=== PATIENT | male | born 1935 | race Caucasian/White ===

== ENCOUNTER 2019-08-06 16:17 | Emergency (ER) | payer MEDICARE, OTHER ==
--- NOTE | 2019-08-06 16:31 | EDM.PDOC ---
ED HPI GENERAL MEDICAL PROBLEM - General Stated Complaint: HORSE BITE TO R ARM Time Seen by Provider: 08/06/19 16:22 Source of Information: Reports: Patient - History of Present Illness INITIAL COMMENTS - FREE TEXT/NARRATIVE: Roddy is an 83 y/o male who comes to the ER after being bitten by one of his horses today in the right upper arm. He cleaned the wound with perioxide. No other injuries. - Related Data Allergies Allergy/AdvReac Type Severity Reaction Status Date / Time bupropion HCl [From Zyban] Allergy Cannot Verified 02/01/18 12:33 Remember ciprofloxacin [From Cipro] Allergy Itching Verified 02/01/18 12:33 ciprofloxacin HCl Allergy Itching Verified 02/01/18 12:33 [From Cipro] morphine Allergy Itching Verified 02/01/18 12:33 Hair Dye Allergy Blisters Uncoded 01/02/16 06:58 Home Meds: Home Meds Cholecalciferol (Vitamin D3) [Vitamin D3] 5,000 units PO DAILY 03/24/13 [History ] Sennosides/Docusate Sodium [Sennosides-Docusate Sodium] 1 tab PO DAILY 03/24/13 [History] Tiotropium [Spiriva Handihaler] 2 puff PO DAILY 03/24/13 [History] Albuterol Sulfate [Proair Hfa] 2 puff PO Q4H PRN 02/01/18 [History] Calcium Citrate/Vitamin D3 [Calcitrate + Vit D Cap (315 MG/250 UNITS)] 1 tab PO BIDMEALS 02/01/18 [History] Zoledronic Acid in Water [Reclast] 5 mg IV Q365D 02/01/18 [History] Acetaminophen [Tylenol] 650 mg PO Q4H PRN tablet 02/05/18 [Rx] Albuterol [Proventil Neb Soln] 2.5 mg NEB Q4H PRN neb 02/05/18 [Rx] Cefdinir [Omnicef] 300 mg PO BID 7 Days #14 cap 02/05/18 [Rx] Citalopram [Citalopram HBr] 20 mg PO DAILY tablet 02/05/18 [Rx] ClonazePAM [KlonoPIN] 1 mg PO BID tablet 02/05/18 [Rx] Latanoprost [Xalatan 0.005% Ophth Soln] 0 ml EYEBOTH BEDTIME bottle 02/05/18 [ Rx] Mirtazapine [Remeron] 7.5 mg PO BEDTIME tablet 02/05/18 [Rx] Nitroglycerin [Nitrostat] 0.4 mg SL ASDIRECTED PRN tab.sl 02/05/18 [Rx] Omeprazole 40 mg PO BIDAC cap.cr 02/05/18 [Rx] Promethazine [Phenergan] 25 mg PO Q6H PRN tablet 02/05/18 [Rx] amLODIPine [Norvasc] 2.5 mg PO DAILY tablet 02/05/18 [Rx] Amoxicillin/Potassium Clav [Augmentin 875-125 Tablet] 1 each PO BID 5 Days #10 tablet 08/06/19 [Rx] Past Medical History HEENT History: Reports: Glaucoma, Hard of Hearing Cardiovascular History: Reports: Hypertension Respiratory History: Reports: COPD Gastrointestinal History: Reports: Diverticulosis, GERD, Other (See Below) Other Gastrointestinal History: Reflux Musculoskeletal History: Reports: Arthritis, Osteoporosis Neurological History: Reports: Other (See Below) Other Neuro History: Restless Leg Syndrome Psychiatric History: Reports: Depression, Other (See Below) Other Psychiatric History: Alcoholism 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 Dermatologic History: Reports: Melanoma, Other (See Below) Other Dermatologic History: Pruritus - Infectious Disease History Infectious Disease History: Reports: Chicken Pox - Past Surgical History Cardiovascular Surgical History: Reports: None Other Respiratory Surgeries/Procedures: Wears a CPAP; on O2 at HS GI Surgical History: Reports: Hernia, Inguinal, Hernia Repair/Other Social & Family History - Family History Family Medical History: Noncontributory - Caffeine Use Caffeine Use: Reports: Coffee, Soda Review of Systems - Review of Systems Review Of Systems: See Below Constitutional: Reports: No Symptoms Eyes: Reports: No Symptoms Ears: Reports: No Symptoms Nose: Reports: No Symptoms Mouth/Throat: Reports: No Symptoms Respiratory: Reports: No Symptoms Cardiovascular: Reports: No Symptoms GI/Abdominal: Reports: No Symptoms Genitourinary: Reports: No Symptoms Musculoskeletal: Reports: No Symptoms Skin: Reports: Other (bite to right upper arm) Neurological: Reports: No Symptoms Psychiatric: Reports: No Symptoms ED EXAM, GENERAL - Physical Exam Exam: See Below General Appearance: Alert, WD/WN, No Apparent Distress (Elderly male) Ears: Hearing Loss ([place]) Nose: Normal Inspection Throat/Mouth: Normal Voice Head: Atraumatic, Normocephalic Neck: Normal Inspection Respiratory/Chest: No Respiratory Distress Cardiovascular: Normal Peripheral Pulses GI/Abdominal: Soft (Male) Exam: Deferred Rectal (Males) Exam: Deferred Back Exam: Normal Inspection Extremities: Normal Range of Motion, Normal Capillary Refill, Other (Note 8cm bruised bite ag on the right upper arm just superior to the elbow region, some skin is avulsed off, no apparent suturing necessary, mild oozing with blood ) Neurological: Alert, Oriented, CN II-XII Intact, Normal Cognition Psychiatric: Normal Affect, Normal Mood Skin Exam: Warm, Dry, Intact, Normal Color, No Rash Lymphatic: No Adenopathy Course - Vital Signs Text/Narrative:: The patient was seen by the [employer]. The wound was cleansed well and dressed with abx oint per RN. No suturing needed. Tetanus verified last in 2015. Patient was given wound care instructions and then placed on Augmentin. He left the ER in stable condition. Departure - Departure Time of Disposition: 16:35 Disposition: Home, Self-Care 01 Condition: Good Clinical Impression: Bitten by horse, initial encounter - Discharge Information *PRESCRIPTION DRUG MONITORING PROGRAM REVIEWED*: Not Applicable *COPY OF PRESCRIPTION DRUG MONITORING REPORT IN PATIENT ALEX: Not Applicable Prescriptions: Amoxicillin/Potassium Clav [Augmentin 875-125 Tablet] 1 each PO BID 5 Days #10 tablet Instructions: Animal Bite, Adult, [id number] Additional Instructions: -Augmentin 875mg oral 2x daily (#4 tabs ER) #10 tabs (Rx) -Keep the wound cleaned daily with soap and water, apply antibiotic ointment as needed with bandage. -Use Acetaminophen or Ibuprofen as needed for pain. -Your last documented tetanus was in 2016, so you did not need an injection today. -Watch for infection, fever, drainage, wound swelling, etc. -Recheck with your PCP Dr Nigel Colon or return to the ER as needed. - Assessment/Plan Assessment:: 1)Horse Bite Plan: -Augmentin 875mg oral 2x daily (#4 tabs ER) #10 tabs (Rx) -Keep the wound cleaned daily with soap and water, apply antibiotic ointment as needed with bandage. -Use Acetaminophen or Ibuprofen as needed for pain. -Your last documented tetanus was in 2015, so you did not need an injection today. -Watch for infection, fever, drainage, wound swelling, etc. -Recheck with your PCP Dr Nigel Colon or return to the ER as needed.
[2019-08-06] MEDS ORDERED: Take Home: Amoxicillin/Clavulanate K 875-125 MG Tab, 2 Tab Pack PO ONE (16:32)
[2019-08-06 17:13] VITALS: BP 144/90; PULSE 78
== END 2019-08-06 16:51 | disposition home or self-care (01) ==
LOC: VM.ED 16:17
DX: S41.151A Open bite of right upper arm, initial encounter (principal); I10 Essential (primary) hypertension; J44.9 Chronic obstructive pulmonary disease, unspecified; K21.9 Gastro-esophageal reflux disease without esophagitis; F32.9 Major depressive disorder, single episode, unspecified; Z88.8 Allergy status to other drugs, medicaments and biological substances; Z88.1 Allergy status to other antibiotic agents; Z91.048 Other nonmedicinal substance allergy status; Z88.5 Allergy status to narcotic agent; W55.11XA Bitten by horse, initial encounter
CPT/HCPCS: 99283; A9270

== ENCOUNTER 2019-09-25 11:46 | Emergency (ER) | payer MEDICARE, OTHER ==
[2019-09-25] MEDS ORDERED: ceFAZolin 1 GM Vial IVPUSH ONE (11:59)
[2019-09-25] MEDS ORDERED: HYDROmorphone 1 MG/ML Syringe IVPUSH ONE ×2 (11:59→12:38)
[2019-09-25] MEDS ORDERED: ceFAZolin 1 GM Vial ONE (12:18)
--- NOTE | 2019-09-25 12:22 | EDM.PDOC ---
ED HPI GENERAL MEDICAL PROBLEM - General Stated Complaint: TRAMPLED BY HORSE Time Seen by Provider: 09/25/19 12:14 Source of Information: Reports: Patient History Limitations: Reports: No Limitations - History of Present Illness INITIAL COMMENTS - FREE TEXT/NARRATIVE: Patient comes emergency department today from his home after an incident where he was injured by a horse. This patient was outside walking his horse when the horse reared up on him knocked him over onto the ground. After he was knocked down to the ground the horse stepped on bilateral arms injuring both of them. He did not hit his head. He has no loss of conscious. He has no head neck or back pain. His injuries were primarily isolated to his bilateral upper extremities. He was not injured in the chest abdomen pelvis back or lower extremities. He complains of pain to bilateral arms. He received some fentanyl for pain relief prior to arrival. He did have one episode of hypotension in the 70s but this quickly resolved and his blood pressure has been stable in the 110s systolically throughout. He has been alert and appropriate for the ambulance. Upon arrival he has no abdominal pain nausea or vomiting. No head neck or back pain. No chest pain no shortness of breath or difficulty breathing. He did have a similar incident with this same horse about a week ago where he had an injury to his left lower distal tib-fib medial region where he ended up with a rather large abrasion which is been healing well he relates. His last tetanus shot is unknown. - Related Data Allergies Allergy/AdvReac Type Severity Reaction Status Date / Time bupropion HCl [From Zyban] Allergy Cannot Verified 09/25/19 12:34 Remember ciprofloxacin [From Cipro] Allergy Itching Verified 09/25/19 12:34 ciprofloxacin HCl Allergy Itching Verified 09/25/19 12:34 [From Cipro] morphine Allergy Itching Verified 09/25/19 12:34 Hair Dye Allergy Blisters Uncoded 09/25/19 12:34 Home Meds: Home Meds Cholecalciferol (Vitamin D3) [Vitamin D3] 5,000 units PO DAILY 03/24/13 [History] Sennosides/Docusate Sodium [Sennosides-Docusate Sodium] 1 tab PO DAILY 03/24/13 [History] Tiotropium [Spiriva Handihaler] 2 puff PO DAILY 03/24/13 [History] Albuterol Sulfate [Proair Hfa] 2 puff PO Q4H PRN 02/01/18 [History] Calcium Citrate/Vitamin D3 [Calcitrate + Vit D Cap (315 MG/250 UNITS)] 1 tab PO BIDMEALS 02/01/18 [History] Zoledronic Acid in Water [Reclast] 5 mg IV Q365D 02/01/18 [History] Acetaminophen [Tylenol] 650 mg PO Q4H PRN tablet 02/05/18 [Rx] Albuterol [Proventil Neb Soln] 2.5 mg NEB Q4H PRN neb 02/05/18 [Rx] Cefdinir [Omnicef] 300 mg PO BID 7 Days #14 cap 02/05/18 [Rx] Citalopram [Citalopram HBr] 20 mg PO DAILY tablet 02/05/18 [Rx] ClonazePAM [KlonoPIN] 1 mg PO BID tablet 02/05/18 [Rx] Latanoprost [Xalatan 0.005% Ophth Soln] 0 ml EYEBOTH BEDTIME bottle 02/05/18 [Rx] Mirtazapine [Remeron] 7.5 mg PO BEDTIME tablet 02/05/18 [Rx] Nitroglycerin [Nitrostat] 0.4 mg SL ASDIRECTED PRN tab.sl 02/05/18 [Rx] Omeprazole 40 mg PO BIDAC cap.cr 02/05/18 [Rx] Promethazine [Phenergan] 25 mg PO Q6H PRN tablet 02/05/18 [Rx] amLODIPine [Norvasc] 2.5 mg PO DAILY tablet 02/05/18 [Rx] Amoxicillin/Potassium Clav [Augmentin 875-125 Tablet] 1 each PO BID 5 Days #10 tablet 08/06/19 [Rx] Past Medical History HEENT History: Reports: Glaucoma, Hard of Hearing Cardiovascular History: Reports: Hypertension Respiratory History: Reports: COPD Gastrointestinal History: Reports: Diverticulosis, GERD, Other (See Below) Other Gastrointestinal History: Reflux Musculoskeletal History: Reports: Arthritis, Osteoporosis Neurological History: Reports: Other (See Below) Other Neuro History: Restless Leg Syndrome Psychiatric History: Reports: Depression, Other (See Below) Other Psychiatric History: Alcoholism 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 Dermatologic History: Reports: Melanoma, Other (See Below) Other Dermatologic History: Pruritus - Infectious Disease History Infectious Disease History: Reports: Chicken Pox - Past Surgical History Cardiovascular Surgical History: Reports: None Other Respiratory Surgeries/Procedures: Wears a CPAP; on O2 at HS GI Surgical History: Reports: Hernia, Inguinal, Hernia Repair/Other Social & Family History - Family History Family Medical History: Noncontributory - Caffeine Use Caffeine Use: Reports: Coffee, Soda Review of Systems - Review of Systems Review Of Systems: Comprehensive ROS is negative, except as noted in HPI. ED EXAM, GENERAL - Physical Exam Exam: See Below Exam Limited By: No Limitations General Appearance: Alert, WD/WN, No Apparent Distress Eye Exam: Bilateral Eye: EOMI, PERRL Ears: Normal External Exam Nose: Normal Inspection, Normal Mucosa Throat/Mouth: Normal Inspection, Normal Lips Head: Atraumatic, Normocephalic Neck: Normal Inspection, Supple, Non-Tender, Full Range of Motion. No: Tender Lateral, Tender Midline Respiratory/Chest: No Respiratory Distress, Lungs Clear, No Accessory Muscle Use, Chest Non-Tender, Decreased Breath Sounds. No: Respiratory Distress Cardiovascular: Normal Peripheral Pulses, Regular Rate, Rhythm, No Edema Peripheral Pulses: 2+: Radial (L), Radial (R), Posterior Tibial (L), Posterior Tibial (R), Dorsalis Pedis (L), Dorsalis Pedis (R) GI/Abdominal: Normal Bowel Sounds, Soft, Non-Tender, No Organomegaly, Pelvis Stable (Male) Exam: Deferred Rectal (Males) Exam: Deferred Back Exam: Normal Inspection, Full Range of Motion. No: CVA Tenderness (L), CVA Tenderness (R), Paraspinal Tenderness, Vertebral Tenderness Extremities: No: Normal Inspection Neurological: Alert, Oriented, CN II-XII Intact, Normal Cognition, No Motor/Sensory Deficits Psychiatric: Normal Affect, Normal Mood Skin Exam: Warm, Dry, Intact, Normal Color, Other (See the Diagram for the extensive injury to the bilateral antecubital regions and forearm. ) Front/Back Body Diagram: 1 - 15 CM degloving injury to the left forearm to the subcutaneous tissues. 2 - Larbe 18 cm deep laceration to the muscle of the bicep and into the joint with bone exposure. No active bleeding. 3 - Superficial abrasion with large scab inplace with mild erythema surround without exudate. Course - Orders/Labs/Meds Orders: Active Orders 24 hr Category Date Time Status Elbow Min 3V Lt [CR] Stat Exams 09/25/19 12:00 Taken Forearm 2V Rt [CR] Stat Exams 09/25/19 12:00 Taken COMPREHENSIVE METABOLIC PN,CMP [CHEM] Stat Lab 09/25/19 12:14 Received DRUG SCREEN, URINE [URCHEM] Stat Lab 09/25/19 11:59 Ordered ETHANOL BLOOD MEDICAL [CHEM] Stat Lab 09/25/19 12:14 Received LACTATE SEPSIS W/ REFLEX [CHEM] Stat Lab 09/25/19 12:14 Received Labs: Laboratory Tests 09/25/19 09/25/19 Range/Units 12:14 12:14 WBC 13.4 H (4.0-10.0) x10^3/uL RBC 4.07 L (4.5-6.0) x10^6/uL Hgb 12.8 L (14.0-18.0) g/dL Hct 37.7 L (40.0-52.0) % MCV 92.6 (78.0-93.0) fL MCH 31.4 (26.0-32.0) pg MCHC 34.0 (32.0-36.0) g/dL RDW Coeff of Jose Miguel 13.3 (10.0-15.0) % Plt Count 214 (130-400) x10^3/uL Neut % (Auto) 82.5 H (50.0-80.0) % Lymph % (Auto) 9.4 L (25.0-50.0) % Gates % (Auto) 7.3 (2.0-11.0) % Eos % (Auto) 0.7 (0.0-4.0) % Baso % (Auto) 0.1 L (0.2-1.2) % PT 10.4 (9.5-12.3) SEC INR 1.0 L (2.0-3.5) APTT 25.4 L (25.6-32.8) SEC Meds: Medications Discontinued Medications Generic Name Dose Route Start Last Admin Trade Name Freq PRN Reason Stop Dose Admin Cefazolin Sodium 2 gm 09/25/19 11:59 09/25/19 12:15 Ancef IVPUSH 09/25/19 12:00 2 gm ONETIME ONE Administration Cefazolin Sodium Confirm 09/25/19 12:18 09/25/19 12:15 Ancef Administered 09/25/19 12:19 Not Given Dose 1 gm .ROUTE .STK-MED ONE Hydromorphone HCl 0.5 mg 09/25/19 11:59 09/25/19 12:16 Dilaudid IVPUSH 09/25/19 12:00 0.5 mg ONETIME ONE Administration - Radiology Interpretation Free Text/Narrative:: X-rays of the right forearm and the left elbow initially reviewed extemporaneously by myself I do not see any overt bony deformity or osseous injury. There is clearly some soft tissue damage on both x-rays as well. Ra diological review to follow. - Re-Assessments/Exams Free Text/Narrative Re-Assessment/Exam: 09/25/19 12:23 The patient did have a c-collar on prior to arrival. This was removed and cleared with Nexus criteria. Ancef 2 grams IVP Dilaudid 1mg IVP tetanus was just a few months ago per the chart. 09/25/19 12:49 Due to the extensive deep injury to the left AC fossa region and the degloving of the right volar forearm. I called and spoke with Dr. Chopra at [facility] in [place]. HPI ER COURSE findings and concerns were relayed to him verbally over the phone. His questions were answered and he accepted the patient in transfer at this time. I relayed my concerns and the plan of care with the patient he is comfortable with this plan and his questions answered. The laceration injuries were dressed with sterile saline gauze and wrapped. Departure - Departure Time of Disposition: 12:39 Disposition: DC/Tfer to Acute Hospital 02 Clinical Impression: Laceration of upper extremity with complication Qualifiers: Encounter type: initial encounter Laterality: unspecified laterality Qualified Code(s): S41.119A - Laceration without foreign body of unspecified upper arm, initial encounter - Discharge Information Referrals: PCP,None [Primary Care Provider] - Forms: Interfacility Transfer EMTALA - My Orders Last 24 Hours: My Active Orders 09/25/19 11:59 DRUG SCREEN, URINE [URCHEM] Stat 09/25/19 12:00 Elbow Min 3V Lt [CR] Stat Forearm 2V Rt [CR] Stat 09/25/19 12:14 COMPREHENSIVE METABOLIC PN,CMP [CHEM] Stat ETHANOL BLOOD MEDICAL [CHEM] Stat LACTATE SEPSIS W/ REFLEX [CHEM] Stat - Assessment/Plan Last 24 Hours: My Active Orders 09/25/19 11:59 DRUG SCREEN, URINE [URCHEM] Stat 09/25/19 12:00 Elbow Min 3V Lt [CR] Stat Forearm 2V Rt [CR] Stat 09/25/19 12:14 COMPREHENSIVE METABOLIC PN,CMP [CHEM] Stat ETHANOL BLOOD MEDICAL [CHEM] Stat LACTATE SEPSIS W/ REFLEX [CHEM] Stat Assessment:: Bilateral upper extremity lacerations requiring surgical washing and closure. Plan: Transfer by ground ambulance to [facility] for further care management.
[2019-09-25 12:35] LABS: PTT,PARTIAL THROMBOPLSTIN TIME 25.4 SEC (25.6-32.8)
[2019-09-25 12:45] LABS: CHLORIDE,CL 104 mmol/L (98-107); SODIUM,NA 136 mmol/L (136-145)
[2019-09-25 12:46] LABS: ANION GAP 11.5 mmol/L (10-20)
--- NOTE | 2019-09-25 13:07 | CR ---
[id number] RAD/RAD Elbow Left 3V Min EXAM: 3 VIEWS LEFT ELBOW. INDICATION: TRAMPLED BY HORSE. COMPARISON: None. DISCUSSION: No fracture, dislocation or other acute osseous abnormality. Extensive soft tissue deformity involving the anterior aspect of the left elbow soft tissues. There does appear to be a radiodense foreign body just deep to the aforementioned soft tissue deformity. IMPRESSION: 1. As above. Amilcar Vargas DO 09/25/19 [id number] Thank you for allowing us to participate in the care of your patient.
--- NOTE | 2019-09-25 13:08 | CR ---
[id number] RAD/RAD Forearm Right 2V EXAM: 2 VIEWS RIGHT FOREARM. INDICATION: TRAMPLED BY HORSE. COMPARISON: None. DISCUSSION: No fracture, dislocation or other acute osseous abnormality. Postsurgical changes following prior internal fixation of distal right radial fracture. No evidence of hardware failure or loosening. Extensive soft tissue deformity involving the right forearm. IMPRESSION: 1. No acute osseous abnormalities. Amilcar Vargas DO 09/25/19 [id number] Thank you for allowing us to participate in the care of your patient.
[2019-09-25 13:22] VITALS: BP 138/79; PULSE 77
== END 2019-09-25 12:55 | disposition short-term general hospital (02) ==
LOC: VM.ED 11:46
DX: S41.111A Laceration without foreign body of right upper arm, initial encounter (principal); S46.222A Laceration of muscle, fascia and tendon of other parts of biceps, left arm, initial encounter; S80.812A Abrasion, left lower leg, initial encounter; I10 Essential (primary) hypertension; J44.9 Chronic obstructive pulmonary disease, unspecified; K21.9 Gastro-esophageal reflux disease without esophagitis; M19.90 Unspecified osteoarthritis, unspecified site; F32.9 Major depressive disorder, single episode, unspecified; Z88.5 Allergy status to narcotic agent; Z91.048 Other nonmedicinal substance allergy status; Z88.1 Allergy status to other antibiotic agents; Z88.8 Allergy status to other drugs, medicaments and biological substances; Z79.899 Other long term (current) drug therapy; W55.19XA Other contact with horse, initial encounter; Y93.01 Activity, walking, marching and hiking
CPT/HCPCS: 36415; 73080; 73090; 80053; 80307; 83605; 85025; 85610; 85730; 96374; 96375; 96376; 99285; J0690; J1170; 99284-GF

== ENCOUNTER 2020-09-03 14:58 | Emergency (ER) | payer MEDICARE, OTHER ==
[2020-09-03] MEDS ORDERED: Sodium Chloride 0.9% 10 ML Syringe FLUSH PRN (15:40)
--- NOTE | 2020-09-03 15:50 | EDM.PDOC ---
ED HPI GENERAL MEDICAL PROBLEM - General Chief Complaint: General Stated Complaint: not feeling well Time Seen by Provider: 09/03/20 15:28 Source of Information: Reports: Patient, Family - History of Present Illness INITIAL COMMENTS - FREE TEXT/NARRATIVE: Roddy is an 85 y/o male who presents to the ER with vague complaints of not feeling well. He reports that he feels a bit dizzy and lightheaded and a slight headache. He was on a wagon train last week and camped on Thursday and Thursday, but then since he could not use his CPAP while camping in the back of a wagon he went home Thursday AM. He did also report eating some chili Thursday evening and he reports not feeling very well since then. He has been at home still taking care of his horses and he reports that one of his horses yesterday and then today he ran a few errands and just has not felt well. He feels a bit unsteady when trying to go down the front steps of the house. He reports his appetite has been fine. Denies any dysuria, no diarrhea or vomiting. He did take a Tylenol a couple hours ago and it has not really helped his sx. Headache Pain Score (Numeric/FACES): 6 - Related Data Allergies Allergy/AdvReac Type Severity Reaction Status Date / Time bupropion HCl [From Zyban] Allergy Cannot Verified 09/03/20 15:39 Remember ciprofloxacin [From Cipro] Allergy Itching Verified 09/03/20 15:39 ciprofloxacin HCl Allergy Itching Verified 09/03/20 15:39 [From Cipro] morphine Allergy Itching Verified 09/03/20 15:39 Hair Dye Allergy Blisters Uncoded 09/25/19 12:34 Home Meds: Home Meds Cholecalciferol (Vitamin D3) [Vitamin D3] 6,000 units PO DAILY 03/24/13 [History] Sennosides/Docusate Sodium [Sennosides-Docusate Sodium] 1 tab PO DAILY 03/24/13 [History] Tiotropium [Spiriva Handihaler] 2 puff PO DAILY 03/24/13 [History] Albuterol Sulfate [Proair Hfa] 2 puff PO Q4H PRN 02/01/18 [History] Calcium Citrate/Vitamin D3 [Calcitrate + Vit D Cap (315 MG/250 UNITS)] 1 tab PO BIDMEALS 02/01/18 [History] Acetaminophen [Tylenol] 650 mg PO Q4H PRN tablet 02/05/18 [Rx] Citalopram [Citalopram HBr] 20 mg PO DAILY tablet 02/05/18 [Rx] ClonazePAM [KlonoPIN] 1 mg PO BID tablet 02/05/18 [Rx] Mirtazapine [Remeron] 7.5 mg PO BEDTIME tablet 02/05/18 [Rx] Nitroglycerin [Nitrostat] 0.4 mg SL ASDIRECTED PRN tab.sl 02/05/18 [Rx] Omeprazole 40 mg PO BIDAC cap.cr 02/05/18 [Rx] amLODIPine [Norvasc] 2.5 mg PO DAILY tablet 02/05/18 [Rx] Latanoprost [Xalatan 0.005% Ophth Soln] 1 drop EYEBOTH BEDTIME 09/03/20 [History] Past Medical History HEENT History: Reports: Glaucoma, Hard of Hearing Cardiovascular History: Reports: Hypertension Respiratory History: Reports: COPD Gastrointestinal History: Reports: Diverticulosis, GERD, Other (See Below) Other Gastrointestinal History: Reflux Musculoskeletal History: Reports: Arthritis, Osteoporosis Neurological History: Reports: Other (See Below) Other Neuro History: Restless Leg Syndrome Psychiatric History: Reports: Depression, Other (See Below) Other Psychiatric History: Alcoholism 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 Dermatologic History: Reports: Melanoma, Other (See Below) Other Dermatologic History: Pruritus - Infectious Disease History Infectious Disease History: Reports: Chicken Pox - Past Surgical History Cardiovascular Surgical History: Reports: None Other Respiratory Surgeries/Procedures: Wears a CPAP; on O2 at HS GI Surgical History: Reports: Hernia, Inguinal, Hernia Repair/Other Social & Family History - Family History Family Medical History: No Pertinent Family History - Caffeine Use Caffeine Use: Reports: Coffee, Soda ED ROS GENERAL - Review of Systems Review Of Systems: See Below Constitutional: Reports: Weakness, Fatigue HEENT: Reports: No Symptoms Respiratory: Reports: No Symptoms Cardiovascular: Reports: No Symptoms Endocrine: Reports: No Symptoms GI/Abdominal: Reports: No Symptoms : Reports: No Symptoms Musculoskeletal: Reports: No Symptoms (mild) Skin: Reports: No Symptoms Neurological: Reports: Dizziness (mild), Headache Psychiatric: Reports: No Symptoms Hematologic/Lymphatic: Reports: No Symptoms Immunologic: Reports: No Symptoms ED EXAM, GENERAL - Physical Exam Exam: See Below Exam Limited By: No Limitations (Elderly male) General Appearance: Alert, WD/WN, No Apparent Distress Eye Exam: Bilateral Eye: PERRL Ears: Normal External Exam, Normal Canal, Hearing Grossly Normal, Normal TMs Nose: Normal Inspection, Normal Mucosa Throat/Mouth: Normal Inspection, Normal Lips, Normal Voice Head: Atraumatic, Normocephalic Neck: Supple Respiratory/Chest: No Respiratory Distress, Lungs Clear, Chest Non-Tender Cardiovascular: Normal Peripheral Pulses, Regular Rate, Rhythm, No Murmur GI/Abdominal: Normal Bowel Sounds, Soft, Non-Tender (Male) Exam: Deferred Rectal (Males) Exam: Deferred Back Exam: Normal Inspection Extremities: Normal Inspection, Normal Range of Motion, No Pedal Edema, Normal Capillary Refill Neurological: Alert, Oriented, CN II-XII Intact, Normal Cognition, No Motor/Sensory Deficits Psychiatric: Normal Affect, Normal Mood Skin Exam: Warm, Dry, Intact, Normal Color, No Rash #1 Interpretation EKG Date: 09/03/20 Time: 15:29 Rate (Beats/Min): 70 [place]: Normal P-Wave: Present QRS: Normal ST-T: Normal QT: Normal EKG Interpretation Comments: Normal Sinus Rhythm Course - Vital Signs Text/Narrative:: 153 The patient was seen by the [employer] TECHNICIAN. Labs and EKG were ordered. 1630 Labs reviewed. CBC neg, CMP BUN=25,Troponin=neg, UA pending. Will given a liter of NS over 2 hours and see if patient feeling better. 1740 IV fluids done. Patient reports that he feels more steady now and his headache is pretty much gone. He was encouraged to drink plenty of fluids. He was given written instructions and left the ER in stable condition. Last Recorded V/S: Last Vital Signs Temp 36.8 C 09/03/20 15:05 Pulse 71 09/03/20 15:05 Resp 16 09/03/20 15:05 BP 170/66 H 09/03/20 15:05 Pulse Ox 96 09/03/20 15:05 - Orders/Labs/Meds Orders: Active Orders 24 hr Category Date Time Status EKG Documentation Completion [RC] STAT Care 06/28/21 15:40 Active Sodium Chloride 0.9% [Saline Flush] Med 09/03/20 15:40 Active 10 ml FLUSH ASDIRECTED PRN Saline Lock Insert [OM.PC] Routine Oth 09/03/20 15:40 Ordered Medication Orders Sodium Chloride (Sodium Chloride 0.9% 10 Ml Syringe) 10 ml FLUSH ASDIRECTED PRN PRN Reason: Keep Vein Open Labs: Laboratory Tests 09/03/20 09/03/20 09/03/20 Range/Units 15:25 15:25 16:25 WBC 6.3 (4.0-10.0) x10^3/uL RBC 4.16 L (4.5-6.0) x10^6/uL Hgb 13.2 L (14.0-18.0) g/dL Hct 38.5 L (40.0-52.0) % MCV 92.5 (78.0-93.0) fL MCH 31.7 (26.0-32.0) pg MCHC 34.3 (32.0-36.0) g/dL RDW Coeff of Jose Miguel 13.6 (10.0-15.0) % Plt Count 233 (130-400) x10^3/uL Neut % (Auto) 76.0 (50.0-80.0) % Lymph % (Auto) 13.9 L (25.0-50.0) % [place] % (Auto) 8.1 (2.0-11.0) % Eos % (Auto) 1.8 (0.0-4.0) % Baso % (Auto) 0.2 (0.2-1.2) % Sodium 141 (136-145) mmol/L Potassium 4.6 (3.5-5.1) mmol/L Chloride 107 (98-107) mmol/L Carbon Dioxide 22 (21-32) mmol/L Anion Gap 16.6 H (5-15) mmol/L BUN 25 H (7-18) mg/dL Creatinine 1.2 (0.70-1.30) mg/dL Est Cr Clr Drug Dosing 45.82 mL/min Estimated GFR (MDRD) 58 Glucose 108 H (70-99) mg/dL Calcium 8.0 L (8.5-10.1) mg/dL Corrected Calcium 8.7 (8.5-10.1) mg/dL Magnesium 2.0 (1.8-2.4) mg/dL Total Bilirubin 0.2 (0.2-1.0) mg/dL AST 25 (15-37) U/L ALT 25 (16-63) U/L Alkaline Phosphatase 83 (46-116) U/L Troponin I High Sens 5 (<=76) ng/L Total Protein 7.1 (6.4-8.2) g/dL Albumin 3.1 L (3.4-5.0) g/dL Globulin 4.0 Albumin/Globulin Ratio 0.78 Urine Color Yellow (YELLOW) Urine Appearance Clear (CLEAR) Urine pH 5.5 (5.0-8.0) Ur Specific [place] 1.025 Urine Protein Negative (NEGATIVE) mg/dL Urine Glucose (UA) Negative (NEGATIVE) mg/dL Urine Ketones Negative (NEGATIVE) mg/dL Urine Occult Blood Negative (NEGATIVE) Urine Nitrite Negative (NEGATIVE) Urine Bilirubin Negative (NEGATIVE) Urine Urobilinogen 0.2 (0.2) EU/dL Ur Leukocyte Esterase Negative (NEGATIVE) Meds: Medications Generic Name Dose Route Start Last Admin Trade Name Freq PRN Reason Stop Dose Admin Sodium Chloride 10 ml 09/03/20 15:40 Sodium Chloride 0.9% 10 Ml Syringe FLUSH ASDIRECTED PRN Keep Vein Open Discontinued Medications Generic Name Dose Route Start Last Admin Trade Name Freq PRN Reason Stop Dose Admin Sodium Chloride 1,000 mls @ 999 mls/hr 09/03/20 16:18 Normal Saline IV 09/03/20 17:18 ONETIME ONE Departure - Departure Time of Disposition: 17:36 Disposition: Home, Self-Care 01 Condition: Good, Fair Clinical Impression: Mild dehydration - Discharge Information Instructions: Dehydration, Elderly, [id number] Referrals: Carol Yi MD [Primary Care Provider] - Forms: ED Department Discharge Additional Instructions: -Stay well hydrated -Rest as needed -If you are still not feeling better in the next couple days, make an appt with Dr Carol Yi for a recheck and further diagnostic testing. -Return to the ER as needed Sepsis Event Note (ED) - Focused Exam Vital Signs: Vital Signs Temp Pulse Resp BP Pulse Ox 09/03/20 15:05 36.8 C 71 16 170/66 H 96 - My Orders Last 24 Hours: My Active Orders 09/03/20 15:40 EKG Documentation Completion [RC] STAT Sodium Chloride 0.9% [Saline Flush] 10 ml FLUSH ASDIRECTED PRN Saline Lock Insert [OM.PC] Routine - Assessment/Plan Last 24 Hours: My Active Orders 09/03/20 15:40 EKG Documentation Completion [RC] STAT Sodium Chloride 0.9% [Saline Flush] 10 ml FLUSH ASDIRECTED PRN Saline Lock Insert [OM.PC] Routine Assessment:: 1)Mild Dehydration 2)Weakness Plan: As above
[2020-09-03 15:51] VITALS: BP 170/66; PULSE 71
[2020-09-03 16:04] LABS: ANION GAP 16.6 mmol/L (5-15)
[2020-09-03] MEDS ORDERED: Sodium Chloride 0.9% 1,000 ML IV ONE (16:18)
== END 2020-09-03 17:40 | disposition home or self-care (01) ==
LOC: VM.ED 14:58
DX: E86.0 Dehydration (principal); R53.1 Weakness; R51.9 Headache, unspecified; I10 Essential (primary) hypertension; J44.9 Chronic obstructive pulmonary disease, unspecified; K21.9 Gastro-esophageal reflux disease without esophagitis; M19.90 Unspecified osteoarthritis, unspecified site; Z88.1 Allergy status to other antibiotic agents; Z88.5 Allergy status to narcotic agent; Z88.8 Allergy status to other drugs, medicaments and biological substances; Z91.048 Other nonmedicinal substance allergy status; Z79.899 Other long term (current) drug therapy
CPT/HCPCS: 80053; 81003; 83735; 84484; 85025; 93005; 93010; 99284; 99285-25; J7030

== ENCOUNTER 2020-11-22 07:14 | Day surgery (SDC) | payer MEDICARE, OTHER ==
[2020-11-22] MEDS: Albuterol/Ipratropium 3.0-0.5 MG/3 ML Neb Soln NEB ONE (08:10)
[2020-11-22] MEDS: Lactated Ringers 1,000 ML IV SCH (08:10)
[2020-11-22] MEDS ORDERED: fentaNYL 100 MCG/2 ML SDV ONE (08:13)
[2020-11-22] MEDS ORDERED: Propofol 200 MG/20 ML SDV ONE (08:13)
[2020-11-22 11:00] VITALS: BP 134/69; PULSE 70
--- NOTE | 2020-11-22 14:13 | OR ---
SURGERY DATE: 11/22/2020. REFERRING PROVIDER: Carol Yi MD PRE-OPERATIVE DIAGNOSES: 1. Chronic dysphagia and chronic globus sensation to the right throat area. The patient complains of chronic productive cough with yellowish-greenish phlegm in the mornings. He is on Prilosec 40 mg twice a day. 2. History of esophageal cancer back in 2005. He is status post partial esophagectomy. POST-OPERATIVE DIAGNOSES: 1. About 8 cm stretch of normal residual esophagus remaining. Stomach has been stretched up into the thoracic cavity. No strictures or rings or masses present. 2. Mild diffuse gastritis with moderate bile reflux noted. Cold biopsies taken from the mid stomach as well as lower stomach. Mucosa did bleed easily. 3. Mild proximal duodenitis. Cold biopsy x3 bites taken. PROCEDURE: Esophagogastroduodenoscopy with cold biopsies x2 sites (stomach, body, and proximal duodenum). SURGEON: Pepe Celaya M.D. ANESTHESIA: Monitored anesthesia care. Roddy is an 85-year-old who was brought to the endoscope suite after discussion of risks and benefits (including but not limited to reaction to medication, bleeding, infection, aspiration, perforation). Informed consent was obtained for monitored anesthesia care and esophagogastroduodenoscopy along with possible biopsy and/or dilatation. Pre-procedure exam including oral cavity was unremarkable except for the presence of dentures which were removed for the procedure. IV, oxygen, and monitors were placed. Patient was placed in the left lateral position and sedation was administered. A bite block was placed gently and scope lightly lubricated and passed through the bite block and over the tongue. Hypopharynx and vocal cords were visualized and unremarkable. Scope was passed through the cricopharynx and into the proximal esophagus. Within about 8 cm, we came to the GE junction. There was absent mid and distal esophagus. The scope was then passed through the distal esophagus and the GE junction was visualized and photographed. The GE junction was otherwise unremarkable. There were no strictures or rings noted. No significant inflammation of the esophageal lining that was remaining. Vocal cords were visualized and unremarkable. The scope was advanced into the stomach which has been stretched up into the thoracic cavity. There was moderate bile reflux noted and this was suctioned. Pylorus was identified and intubated and then the scope was advanced into the first, second, and third portions of the duodenum. The second and third portions of the duodenum were unremarkable. The duodenal bulb was visualized and was remarkable for some mild duodenitis. The scope was brought then back into the stomach, and the pylorus and the antrum did have more of a gastric body type appearance to them. There was not enough room to do any retroflexion within the stomach which has been stretched up into the thoracic cavity. Stomach lining was somewhat friable and bled easily with biopsies. There was mild diffuse gastritis noted. Cold biopsy x3 bites was taken from this area to check for H. pylori and sent for path. Stomach was desufflated of air. The scope was slowly withdrawn, and the residual esophagus was closely visualized during withdrawal all the way to the posterior pharynx. The scope was retroflexed to visualize the angularis, fundus, body, and cardia. These were . The stomach was desufflated of air and then the scope was slowly withdrawn, and the esophagus was closely visualized during withdrawal all the way into the posterior pharynx. The patient tolerated the procedure well and went to recovery in stable condition. The patient was monitored until at baseline status. Findings and discharge instructions were reviewed and the patient was discharged in good condition. COMPLICATIONS: None. TOTAL TIME: 12 minutes. ESTIMATED BLOOD LOSS: 3 to 5 mL. RECOMMENDATIONS/FOLLOW-UP: The patient can continue on his omeprazole 40 mg twice a day. If symptoms not controlled, could consider another PPI like pantoprazole or adding an H2 mani. The patient should remain upright after eating or drinking anything given this short esophagus. With this chronic cough and globus sensation, consider bronchoscopy. I will have the patient hold his aspirin for 3 days to limit any chance of bleeding from the biopsy sites. If ongoing issues with reflux or dysphagia, consider seeing GI. I would like to kindly thank Dr. Yi for this referral. DMB: 11/22/2020 12:02:40 MODL: 11/22/2020 13:28:04 /[id number]
== END 2020-11-22 11:22 | disposition home or self-care (01) ==
LOC: VM.SDS 07:14
PROVIDERS: ATTEND Family Medicine
DX: K31.7 Polyp of stomach and duodenum (principal); K29.90 Gastroduodenitis, unspecified, without bleeding; Q40.2 Other specified congenital malformations of stomach; R13.10 Dysphagia, unspecified; R05 Cough; G47.33 Obstructive sleep apnea (adult) (pediatric); J44.9 Chronic obstructive pulmonary disease, unspecified; I12.9 Hypertensive chronic kidney disease with stage 1 through stage 4 chronic kidney disease, or unspecified chronic kidney disease; N18.31 Chronic kidney disease, stage 3a; Z79.899 Other long term (current) drug therapy; Z88.8 Allergy status to other drugs, medicaments and biological substances; Z87.891 Personal history of nicotine dependence; Z88.5 Allergy status to narcotic agent
CPT/HCPCS: 00731; 88305; 94640; J2704; J3010; J7120; J7620-GY

== ENCOUNTER 2022-02-13 16:51 | Emergency (ER) | payer MEDICARE, OTHER ==
[2022-02-13 17:13] VITALS: BP 154/73; PULSE 93
[2022-02-13] MEDS ORDERED: Dexamethasone 4 MG/ML SDV IM ONE (17:16)
[2022-02-13] MEDS ORDERED: Albuterol/Ipratropium 3.0-0.5 MG/3 ML Neb Soln NEB ONE (17:16)
== END 2022-02-13 17:55 | disposition home or self-care (01) ==
LOC: VM.ED 16:51
DX: J44.1 Chronic obstructive pulmonary disease with (acute) exacerbation (principal); I10 Essential (primary) hypertension; Z88.1 Allergy status to other antibiotic agents; Z88.6 Allergy status to analgesic agent; Z91.041 Radiographic dye allergy status; Z79.899 Other long term (current) drug therapy
CPT/HCPCS: 94640; 99284; J1100; J7620-GY

== ENCOUNTER 2022-10-23 11:49 | Emergency (ER) | payer MEDICARE ==
[2022-10-23] MEDS ORDERED: Sodium Chloride 0.9% 10 ML Syringe FLUSH PRN (11:55)
[2022-10-23] MEDS ORDERED: Ondansetron 4 MG/2 ML SDV IVPUSH ONE (11:56)
[2022-10-23] MEDS ORDERED: HYDROmorphone 0.5 MG/0.5 ML Syringe IVPUSH ONE (11:57)
[2022-10-23 12:18] LABS: BASOPHILS PERCENT AUTO 0.1 % (0.2-1.2); EOSINOPHILS ABSOLUTE AUTO 0.1 x10^3/uL (0.0-0.5); EOSINOPHILS PERCENT AUTO 1.2 % (0.0-4.0); HEMATOCRIT 41.6 % (40.0-52.0); HEMOGLOBIN 14.7 g/dL (14.0-18.0); IMMATURE GRAN ABSOLUTE AUTO 0.06 x10^3/uL (0.00-0.07); LYMPHOCYTES PERCENT AUTO 11.8 % (25.0-50.0); MEAN CORPUSCULAR HEMOGLOBIN 32.1 pg (26.0-32.0); MEAN CORPUSCULAR HGB CONC 35.3 g/dL (32.0-36.0); MEAN CORPUSCULAR VOLUME 90.8 fL (78.0-93.0); MONOCYTES ABSOLUTE AUTO 0.7 x10^3/uL (0.0-0.8); MONOCYTES PERCENT AUTO 8.1 % (2.0-11.0); NEUTROPHILS ABSOLUTE AUTO 6.4 x10^3/uL (1.8-7.7); NEUTROPHILS PERCENT AUTO 78.1 % (50.0-80.0); PLATELET COUNT,PLT 196 x10^3/uL (130-400); RED BLOOD CELL COUNT 4.58 x10^6/uL (4.5-6.0); WHITE BLOOD CELL COUNT,WBC 8.2 x10^3/uL (4.0-10.0)
[2022-10-23 12:36] LABS: INR 0.9 (2.0-3.5); PROTHROMBIN TIME 10.2 SEC (9.5-12.2); PTT,PARTIAL THROMBOPLSTIN TIME 31.2 SEC (23.6-33.6)
[2022-10-23 12:39] LABS: ALANINE AMINOTRANSFERASE,ALT 15 U/L (16-63); ALBUMIN 3.6 g/dL (3.4-5.0); ALKALINE PHOSPHATASE 107 U/L (46-116); ANION GAP 11.4 mmol/L (5-15); ASPARTATE AMNIOTRANSFERASE,AST 11 U/L (15-37); BILIRUBIN TOTAL 0.6 mg/dL (0.2-1.0); BLOOD UREA NITROGEN,BUN 24 mg/dL (7-18); C-REACTIVE PROTEIN 0.48 mg/dL (<=0.30); CALCIUM 9.2 mg/dL (8.5-10.1); CARBON DIOXIDE,CO2 29 mmol/L (21-32); CHLORIDE,CL 100 mmol/L (98-107); CREATININE 1.4 mg/dL (0.70-1.30); ESTIMATED GFR 49 mL/min (>=60); GLUCOSE RANDOM 103 mg/dL (70-99); MAGNESIUM 1.9 mg/dL (1.8-2.4); POTASSIUM,K 4.4 mmol/L (3.5-5.1); PROTEIN TOTAL,TP 7.2 g/dL (6.4-8.2); SODIUM,NA 136 mmol/L (136-145)
[2022-10-23 12:42] LABS: LACTIC ACID 1.6 mmol/L (0.4-2.0)
[2022-10-23] MEDS ORDERED: Lactated Ringers 1,000 ML IV ONE (12:43)
[2022-10-23] MEDS ORDERED: Iopamidol 612 MG/ML 100 ML Bottle IVPUSH ONE (12:58)
[2022-10-23 13:40] LABS: APPEARANCE,URINE CLEAR (CLEAR); BILIRUBIN,URINE NEGATIVE (NEGATIVE); COLOR,URINE YELLOW (YELLOW); GLUCOSE,URINE NEGATIVE (NEGATIVE); KETONES,URINE NEGATIVE (NEGATIVE); LEUKOCYTE ESTERASE,URINE NEGATIVE (NEGATIVE); NITRITE,URINE NEGATIVE (NEGATIVE); OCCULT BLOOD,URINE NEGATIVE (NEGATIVE); PH,URINE 5.5 (5.0-8.0); PROTEIN,URINE NEGATIVE (NEGATIVE); UROBILINOGEN,URINE 0.2 EU/dL (0.2)
[2022-10-23 15:06] VITALS: BP 148/72; PULSE 68
== END 2022-10-23 14:25 | disposition home or self-care (01) ==
LOC: VM.ED 11:49
DX: K59.01 Slow transit constipation (principal); I12.9 Hypertensive chronic kidney disease with stage 1 through stage 4 chronic kidney disease, or unspecified chronic kidney disease; N18.9 Chronic kidney disease, unspecified; K21.9 Gastro-esophageal reflux disease without esophagitis; Z79.899 Other long term (current) drug therapy; Z88.1 Allergy status to other antibiotic agents; Z88.5 Allergy status to narcotic agent; Z88.6 Allergy status to analgesic agent; Z88.8 Allergy status to other drugs, medicaments and biological substances; Z91.041 Radiographic dye allergy status
CPT/HCPCS: 36415; 74177; 80053; 81003; 83605; 83735; 85025; 85610; 85730; 86140; 96361; 96374; 96375; 99284; 99284-25; J1170; J2405; J7120; Q9967

== ENCOUNTER 2022-11-14 11:11 | Emergency (ER) | payer MEDICARE ==
[2022-11-14 11:32] LABS: BASOPHILS PERCENT AUTO 0.1 % (0.2-1.2); EOSINOPHILS ABSOLUTE AUTO 0.1 x10^3/uL (0.0-0.5); EOSINOPHILS PERCENT AUTO 0.9 % (0.0-4.0); HEMATOCRIT 41.6 % (40.0-52.0); HEMOGLOBIN 14.2 g/dL (14.0-18.0); IMMATURE GRAN ABSOLUTE AUTO 0.08 x10^3/uL (0.00-0.07); LYMPHOCYTES ABSOLUTE AUTO 0.9 x10^3/uL (1.0-4.8); LYMPHOCYTES PERCENT AUTO 10.2 % (25.0-50.0); MEAN CORPUSCULAR HEMOGLOBIN 31.6 pg (26.0-32.0); MEAN CORPUSCULAR HGB CONC 34.1 g/dL (32.0-36.0); MEAN CORPUSCULAR VOLUME 92.4 fL (78.0-93.0); MONOCYTES ABSOLUTE AUTO 0.7 x10^3/uL (0.0-0.8); MONOCYTES PERCENT AUTO 8.6 % (2.0-11.0); NEUTROPHILS ABSOLUTE AUTO 6.8 x10^3/uL (1.8-7.7); NEUTROPHILS PERCENT AUTO 79.3 % (50.0-80.0); PLATELET COUNT,PLT 189 x10^3/uL (130-400); WHITE BLOOD CELL COUNT,WBC 8.6 x10^3/uL (4.0-10.0)
[2022-11-14 11:48] LABS: A/G RATIO 1.03; ALBUMIN 3.5 g/dL (3.4-5.0); BILIRUBIN TOTAL 0.4 mg/dL (0.2-1.0); C-REACTIVE PROTEIN 0.85 mg/dL (<=0.30); CALCIUM 8.4 mg/dL (8.5-10.1); POTASSIUM,K 4.5 mmol/L (3.5-5.1); PROTEIN TOTAL,TP 6.9 g/dL (6.4-8.2)
[2022-11-14 11:49] LABS: ANION GAP 14.5 mmol/L (5-15)
[2022-11-14 12:01] LABS: STREP A BY PCR NOT DETECTED (NOT DETECT)
[2022-11-14 12:05] LABS: EST CRCL DRUG DOSING (CG) 34.18 mL/min
[2022-11-14 12:07] LABS: CREATININE 1.4 mg/dL (0.70-1.30)
[2022-11-14 12:10] LABS: CORONAVIRUS COVID-19 NAA NEGATIVE (NEGATIVE); INFLUENZA A NAA NEGATIVE (NEGATIVE); INFLUENZA B NAA NEGATIVE (NEGATIVE)
[2022-11-14 12:20] VITALS: BP 143/70; PULSE 73
== END 2022-11-14 12:25 | disposition home or self-care (01) ==
LOC: VM.ED 11:11 → SUPCPDRO 11:11 → VM.ED 12:25
DX: J06.9 Acute upper respiratory infection, unspecified (principal); I10 Essential (primary) hypertension; K21.9 Gastro-esophageal reflux disease without esophagitis; Z87.891 Personal history of nicotine dependence; Z20.822 Contact with and (suspected) exposure to COVID-19; Z88.6 Allergy status to analgesic agent; Z88.1 Allergy status to other antibiotic agents; Z88.5 Allergy status to narcotic agent; Z91.041 Radiographic dye allergy status
CPT/HCPCS: 0240U; 36415; 71046; 80053; 85025; 86140; 87651; 99283

== ENCOUNTER 2023-02-03 08:24 | Emergency (ER) | payer MEDICARE, OTHER ==
[2023-02-03 09:05] LABS: BASOPHILS PERCENT AUTO 0.3 % (0.2-1.2); EOSINOPHILS ABSOLUTE AUTO 0.1 x10^3/uL (0.0-0.5); EOSINOPHILS PERCENT AUTO 1.4 % (0.0-4.0); HEMATOCRIT 42.5 % (40.0-52.0); HEMOGLOBIN 14.6 g/dL (14.0-18.0); IMMATURE GRAN ABSOLUTE AUTO 0.03 x10^3/uL (0.00-0.07); LYMPHOCYTES ABSOLUTE AUTO 1.2 x10^3/uL (1.0-4.8); LYMPHOCYTES PERCENT AUTO 14.7 % (25.0-50.0); MEAN CORPUSCULAR HEMOGLOBIN 31.3 pg (26.0-32.0); MEAN CORPUSCULAR HGB CONC 34.4 g/dL (32.0-36.0); MONOCYTES ABSOLUTE AUTO 0.7 x10^3/uL (0.0-0.8); MONOCYTES PERCENT AUTO 8.3 % (2.0-11.0); NEUTROPHILS PERCENT AUTO 74.9 % (50.0-80.0); PLATELET COUNT,PLT 197 x10^3/uL (130-400); RED BLOOD CELL COUNT 4.67 x10^6/uL (4.5-6.0); WHITE BLOOD CELL COUNT,WBC 7.9 x10^3/uL (4.0-10.0)
[2023-02-03 09:28] LABS: BLOOD UREA NITROGEN,BUN 30 mg/dL (7-18); CARBON DIOXIDE,CO2 22 mmol/L (21-32); CHLORIDE,CL 102 mmol/L (98-107); CREATININE 1.5 mg/dL (0.70-1.30); GLUCOSE RANDOM 111 mg/dL (70-99); POTASSIUM,K 3.8 mmol/L (3.5-5.1); SODIUM,NA 133 mmol/L (136-145)
[2023-02-03 09:29] LABS: ANION GAP 12.8 mmol/L (5-15); ESTIMATED GFR 45 mL/min (>=60)
[2023-02-03 11:46] VITALS: BP 133/68; PULSE 76
== END 2023-02-03 12:34 | disposition home or self-care (01) ==
LOC: VM.ED 08:24
DX: R06.02 Shortness of breath (principal); I12.9 Hypertensive chronic kidney disease with stage 1 through stage 4 chronic kidney disease, or unspecified chronic kidney disease; N18.31 Chronic kidney disease, stage 3a; K21.9 Gastro-esophageal reflux disease without esophagitis; J44.9 Chronic obstructive pulmonary disease, unspecified; Z87.891 Personal history of nicotine dependence; Z88.5 Allergy status to narcotic agent; Z88.1 Allergy status to other antibiotic agents; Z88.8 Allergy status to other drugs, medicaments and biological substances; Z91.048 Other nonmedicinal substance allergy status; Z79.899 Other long term (current) drug therapy
CPT/HCPCS: 36415; 70450; 71045; 80048; 83880; 84484; 85025; 93010; 99284; 99285

== ENCOUNTER 2023-02-09 12:39 | Emergency (ER) | payer MEDICARE, OTHER ==
[2023-02-09] MEDS: Albuterol/Ipratropium 3.0-0.5 MG/3 ML Neb Soln NEB ONE (12:43)
[2023-02-09] MEDS ORDERED: Sodium Chloride 0.9% 10 ML Syringe FLUSH PRN (12:44)
[2023-02-09] MEDS: cefTRIAXone 1 GM Vial IVPUSH ONE (12:52)
[2023-02-09] MEDS: methylPREDNISolone Sodium Succinate 125 MG/2 ML SDV IVPUSH ONE (12:53)
[2023-02-09 13:24] LABS: BASOPHILS PERCENT AUTO 0.2 % (0.2-1.2); EOSINOPHILS PERCENT AUTO 0.3 % (0.0-4.0); HEMATOCRIT 42.7 % (40.0-52.0); IMMATURE GRAN ABSOLUTE AUTO 0.14 x10^3/uL (0.00-0.07); LYMPHOCYTES ABSOLUTE AUTO 1.3 x10^3/uL (1.0-4.8); MEAN CORPUSCULAR HEMOGLOBIN 32.3 pg (26.0-32.0); MEAN CORPUSCULAR HGB CONC 35.1 g/dL (32.0-36.0); MONOCYTES PERCENT AUTO 9.3 % (2.0-11.0); NEUTROPHILS ABSOLUTE AUTO 8.6 x10^3/uL (1.8-7.7); NEUTROPHILS PERCENT AUTO 76.9 % (50.0-80.0); PLATELET COUNT,PLT 234 x10^3/uL (130-400); RED BLOOD CELL COUNT 4.64 x10^6/uL (4.5-6.0); WHITE BLOOD CELL COUNT,WBC 11.1 x10^3/uL (4.0-10.0)
[2023-02-09 13:42] LABS: PROTHROMBIN TIME 10.7 SEC (9.5-12.2)
[2023-02-09 13:46] LABS: LACTIC ACID 1.5 mmol/L (0.4-2.0)
[2023-02-09 13:50] LABS: ALANINE AMINOTRANSFERASE,ALT 71 U/L (16-63); ALBUMIN 3.7 g/dL (3.4-5.0); ALKALINE PHOSPHATASE 114 U/L (46-116); ASPARTATE AMNIOTRANSFERASE,AST 25 U/L (15-37); BILIRUBIN TOTAL 0.5 mg/dL (0.2-1.0); BLOOD UREA NITROGEN,BUN 40 mg/dL (7-18); C-REACTIVE PROTEIN 1.88 mg/dL (<=0.50); CALCIUM 9.1 mg/dL (8.5-10.1); CARBON DIOXIDE,CO2 26 mmol/L (21-32); CHLORIDE,CL 104 mmol/L (98-107); CREATININE 1.7 mg/dL (0.70-1.30); GLUCOSE RANDOM 61 mg/dL (70-99); MAGNESIUM 1.9 mg/dL (1.8-2.4); POTASSIUM,K 3.9 mmol/L (3.5-5.1); PRO B-TYPE NATRIUR PEPT,BNPPRO 129 pg/mL (<=450); PROTEIN TOTAL,TP 7.4 g/dL (6.4-8.2); SODIUM,NA 142 mmol/L (136-145)
[2023-02-09] MEDS: Doxycycline Monohydrate 100 MG Cap PO ONE (13:50)
[2023-02-09 13:53] LABS: ANION GAP 15.9 mmol/L (5-15); ESTIMATED GFR 39 mL/min (>=60)
[2023-02-09 14:34] LABS: CORONAVIRUS COVID-19 NAA NEGATIVE (NEGATIVE); INFLUENZA A NAA NEGATIVE (NEGATIVE); INFLUENZA B NAA NEGATIVE (NEGATIVE); RESPIRATORY SYNCYTIAL VIR NAA NEGATIVE (NEGATIVE)
[2023-02-09 16:51] VITALS: BP 136/70; PULSE 88
== END 2023-02-09 14:57 | disposition home or self-care (01) ==
LOC: VM.ED 12:39
DX: J44.9 Chronic obstructive pulmonary disease, unspecified (principal); Z20.822 Contact with and (suspected) exposure to COVID-19; I12.9 Hypertensive chronic kidney disease with stage 1 through stage 4 chronic kidney disease, or unspecified chronic kidney disease; N18.9 Chronic kidney disease, unspecified; K21.9 Gastro-esophageal reflux disease without esophagitis; Z79.899 Other long term (current) drug therapy; Z88.8 Allergy status to other drugs, medicaments and biological substances; Z88.1 Allergy status to other antibiotic agents; Z91.041 Radiographic dye allergy status; Z88.5 Allergy status to narcotic agent
CPT/HCPCS: 0241U; 36415; 71045; 80053; 83605; 83735; 83880; 84484; 85025; 85610; 85730; 86140; 87040; 93005; 93010; 96374; 96375; 99284; 99284-25; A9270-GY; J0696; J2930; J7620-GY

== ENCOUNTER 2023-03-31 11:29 | Emergency (ER) | payer OTHER, MEDICARE ==
[2023-03-31] MEDS ORDERED: Orphenadrine 60 MG/2 ML Inj IM ONE (12:38)
[2023-03-31 16:11] VITALS: BP 134/67; PULSE 83
== END 2023-03-31 13:45 | disposition home or self-care (01) ==
LOC: VM.ED 11:29
DX: M54.6 Pain in thoracic spine (principal); I12.9 Hypertensive chronic kidney disease with stage 1 through stage 4 chronic kidney disease, or unspecified chronic kidney disease; N18.9 Chronic kidney disease, unspecified; J44.9 Chronic obstructive pulmonary disease, unspecified; K21.9 Gastro-esophageal reflux disease without esophagitis; Z87.891 Personal history of nicotine dependence; Z79.899 Other long term (current) drug therapy; Z91.041 Radiographic dye allergy status; Z88.5 Allergy status to narcotic agent; Z88.1 Allergy status to other antibiotic agents; Z88.8 Allergy status to other drugs, medicaments and biological substances
CPT/HCPCS: 96372; 99284; J2360

== ENCOUNTER 2023-04-07 12:30 | Emergency (ER) | payer OTHER, MEDICARE ==
[2023-04-07 12:57] VITALS: BP 141/63; PULSE 88
== END 2023-04-07 12:51 | disposition home or self-care (01) ==
LOC: VM.ED 12:30
DX: M25.531 Pain in right wrist (principal); M25.532 Pain in left wrist; M79.644 Pain in right finger(s); M79.645 Pain in left finger(s); M79.671 Pain in right foot; M79.672 Pain in left foot; I12.9 Hypertensive chronic kidney disease with stage 1 through stage 4 chronic kidney disease, or unspecified chronic kidney disease; N18.30 Chronic kidney disease, stage 3 unspecified; J44.9 Chronic obstructive pulmonary disease, unspecified; K21.9 Gastro-esophageal reflux disease without esophagitis; Z79.899 Other long term (current) drug therapy; Z91.048 Other nonmedicinal substance allergy status; Z88.5 Allergy status to narcotic agent; Z88.1 Allergy status to other antibiotic agents; Z88.8 Allergy status to other drugs, medicaments and biological substances
CPT/HCPCS: 99283

== ENCOUNTER 2023-04-15 14:30 | Emergency (ER) | payer OTHER, MEDICARE ==
[2023-04-15 15:33] LABS: BASOPHILS PERCENT AUTO 0.1 % (0.2-1.2); EOSINOPHILS ABSOLUTE AUTO 0.1 x10^3/uL (0.0-0.5); EOSINOPHILS PERCENT AUTO 0.8 % (0.0-4.0); HEMATOCRIT 39.6 % (40.0-52.0); HEMOGLOBIN 13.2 g/dL (14.0-18.0); IMMATURE GRAN ABSOLUTE AUTO 0.26 x10^3/uL (0.00-0.07); LYMPHOCYTES ABSOLUTE AUTO 1.3 x10^3/uL (1.0-4.8); LYMPHOCYTES PERCENT AUTO 10.9 % (25.0-50.0); MEAN CORPUSCULAR HEMOGLOBIN 30.5 pg (26.0-32.0); MEAN CORPUSCULAR HGB CONC 33.3 g/dL (32.0-36.0); MEAN CORPUSCULAR VOLUME 91.5 fL (78.0-93.0); NEUTROPHILS ABSOLUTE AUTO 9.5 x10^3/uL (1.8-7.7); NEUTROPHILS PERCENT AUTO 78.1 % (50.0-80.0); PLATELET COUNT,PLT 249 x10^3/uL (130-400); RED BLOOD CELL COUNT 4.33 x10^6/uL (4.5-6.0); WHITE BLOOD CELL COUNT,WBC 12.2 x10^3/uL (4.0-10.0)
[2023-04-15 15:45] LABS: A/G RATIO 0.86; ALANINE AMINOTRANSFERASE,ALT 47 U/L (16-63); ALBUMIN 3.2 g/dL (3.4-5.0); ALKALINE PHOSPHATASE 142 U/L (46-116); ASPARTATE AMNIOTRANSFERASE,AST 15 U/L (15-37); BILIRUBIN TOTAL 0.3 mg/dL (0.2-1.0); BLOOD UREA NITROGEN,BUN 29 mg/dL (7-18); C-REACTIVE PROTEIN 9.25 mg/dL (<=0.50); CALCIUM 8.8 mg/dL (8.5-10.1); CARBON DIOXIDE,CO2 26 mmol/L (21-32); CHLORIDE,CL 100 mmol/L (98-107); CREATININE 1.2 mg/dL (0.70-1.30); GLUCOSE RANDOM 101 mg/dL (70-99); POTASSIUM,K 4.2 mmol/L (3.5-5.1); PROTEIN TOTAL,TP 6.9 g/dL (6.4-8.2); SODIUM,NA 138 mmol/L (136-145)
[2023-04-15 15:46] LABS: ANION GAP 16.2 mmol/L (5-15); ESTIMATED GFR 59 mL/min (>=60)
[2023-04-15 16:12] LABS: SEDIMENTATION RATE AUTO 45 mm/hr (0-15)
[2023-04-15 16:38] VITALS: BP 136/89; PULSE 88
== END 2023-04-15 16:36 | disposition home or self-care (01) ==
LOC: VM.ED 14:30
DX: M35.3 Polymyalgia rheumatica (principal); I12.9 Hypertensive chronic kidney disease with stage 1 through stage 4 chronic kidney disease, or unspecified chronic kidney disease; N18.30 Chronic kidney disease, stage 3 unspecified; J44.9 Chronic obstructive pulmonary disease, unspecified; K21.9 Gastro-esophageal reflux disease without esophagitis; Z87.891 Personal history of nicotine dependence; Z79.899 Other long term (current) drug therapy; Z88.8 Allergy status to other drugs, medicaments and biological substances; Z91.040 Latex allergy status; Z88.5 Allergy status to narcotic agent
CPT/HCPCS: 36415; 80053; 85025; 85652; 86140; 99283

== ENCOUNTER 2023-05-26 11:45 | Emergency (ER) | payer OTHER, MEDICARE ==
[2023-05-26 12:30] LABS: BASOPHILS PERCENT AUTO 0.2 % (0.2-1.2); EOSINOPHILS ABSOLUTE AUTO 0.1 x10^3/uL (0.0-0.5); HEMATOCRIT 39.1 % (40.0-52.0); IMMATURE GRAN ABSOLUTE AUTO 0.07 x10^3/uL (0.00-0.07); LYMPHOCYTES ABSOLUTE AUTO 0.8 x10^3/uL (1.0-4.8); LYMPHOCYTES PERCENT AUTO 9.8 % (25.0-50.0); MEAN CORPUSCULAR HEMOGLOBIN 30.6 pg (26.0-32.0); MEAN CORPUSCULAR HGB CONC 33.2 g/dL (32.0-36.0); MONOCYTES ABSOLUTE AUTO 0.8 x10^3/uL (0.0-0.8); MONOCYTES PERCENT AUTO 9.9 % (2.0-11.0); NEUTROPHILS ABSOLUTE AUTO 6.4 x10^3/uL (1.8-7.7); NEUTROPHILS PERCENT AUTO 78.2 % (50.0-80.0); PLATELET COUNT,PLT 258 x10^3/uL (130-400); RED BLOOD CELL COUNT 4.25 x10^6/uL (4.5-6.0); WHITE BLOOD CELL COUNT,WBC 8.2 x10^3/uL (4.0-10.0)
[2023-05-26 13:02] LABS: A/G RATIO 0.92; ALBUMIN 3.5 g/dL (3.4-5.0); ANION GAP 17.6 mmol/L (5-15); BILIRUBIN TOTAL 0.4 mg/dL (0.2-1.0); C-REACTIVE PROTEIN 4.21 mg/dL (<=0.50); CALCIUM 9.3 mg/dL (8.5-10.1); CREATININE 1.4 mg/dL (0.70-1.30); EST CRCL DRUG DOSING (CG) 34.79 mL/min; POTASSIUM,K 4.6 mmol/L (3.5-5.1); PROTEIN TOTAL,TP 7.3 g/dL (6.4-8.2)
[2023-05-26 13:58] VITALS: BP 135/80; PULSE 78
== END 2023-05-26 13:30 | disposition home or self-care (01) ==
LOC: VM.ED 11:45
DX: R06.02 Shortness of breath (principal); K21.9 Gastro-esophageal reflux disease without esophagitis; J44.9 Chronic obstructive pulmonary disease, unspecified; I12.9 Hypertensive chronic kidney disease with stage 1 through stage 4 chronic kidney disease, or unspecified chronic kidney disease; N18.9 Chronic kidney disease, unspecified; Z87.891 Personal history of nicotine dependence; Z88.8 Allergy status to other drugs, medicaments and biological substances; Z91.041 Radiographic dye allergy status; Z88.5 Allergy status to narcotic agent; Z88.1 Allergy status to other antibiotic agents; Z79.899 Other long term (current) drug therapy
CPT/HCPCS: 36415; 71046; 80053; 83880; 84484; 85025; 86140; 93005; 93010; 99284; 99285

== ENCOUNTER 2023-08-18 03:34 | Emergency (ER) | payer OTHER, MEDICARE ==
[2023-08-18] MEDS ORDERED: Sodium Chloride 0.9% 10 ML Syringe FLUSH PRN (03:53)
[2023-08-18] MEDS: Albuterol/Ipratropium 3.0-0.5 MG/3 ML Neb Soln NEB ONE (04:00)
[2023-08-18] MEDS: methylPREDNISolone Sodium Succinate 125 MG/2 ML SDV IVPUSH ONE (04:04)
[2023-08-18] MEDS: LORazepam 2 MG/ML SDV IVPUSH ONE (04:06)
[2023-08-18 04:10] LABS: BASOPHILS PERCENT AUTO 0.2 % (0.2-1.2); EOSINOPHILS ABSOLUTE AUTO 0.1 x10^3/uL (0.0-0.5); EOSINOPHILS PERCENT AUTO 0.6 % (0.0-4.0); HEMATOCRIT 37.8 % (40.0-52.0); HEMOGLOBIN 13.1 g/dL (14.0-18.0); IMMATURE GRAN ABSOLUTE AUTO 0.22 x10^3/uL (0.00-0.07); LYMPHOCYTES ABSOLUTE AUTO 1.2 x10^3/uL (1.0-4.8); LYMPHOCYTES PERCENT AUTO 14.1 % (25.0-50.0); MEAN CORPUSCULAR HEMOGLOBIN 31.6 pg (26.0-32.0); MEAN CORPUSCULAR HGB CONC 34.7 g/dL (32.0-36.0); MEAN CORPUSCULAR VOLUME 91.3 fL (78.0-93.0); MONOCYTES ABSOLUTE AUTO 0.7 x10^3/uL (0.0-0.8); MONOCYTES PERCENT AUTO 7.8 % (2.0-11.0); NEUTROPHILS ABSOLUTE AUTO 6.3 x10^3/uL (1.8-7.7); NEUTROPHILS PERCENT AUTO 74.7 % (50.0-80.0); PLATELET COUNT,PLT 183 x10^3/uL (130-400); RED BLOOD CELL COUNT 4.14 x10^6/uL (4.5-6.0); WHITE BLOOD CELL COUNT,WBC 8.5 x10^3/uL (4.0-10.0)
[2023-08-18 04:37] LABS: A/G RATIO 1.03; ALBUMIN 3.3 g/dL (3.4-5.0); ANION GAP 17.1 mmol/L (5-15); BILIRUBIN TOTAL 0.3 mg/dL (0.2-1.0); C-REACTIVE PROTEIN 0.55 mg/dL (<=0.50); CALCIUM 8.9 mg/dL (8.5-10.1); CREATININE 1.7 mg/dL (0.70-1.30); EST CRCL DRUG DOSING (CG) 29.16 mL/min; POTASSIUM,K 4.1 mmol/L (3.5-5.1); PROTEIN TOTAL,TP 6.5 g/dL (6.4-8.2)
[2023-08-18 05:06] VITALS: BP 124/56; PULSE 88
== END 2023-08-18 05:15 | disposition home or self-care (01) ==
LOC: VM.ED 03:34
DX: J44.1 Chronic obstructive pulmonary disease with (acute) exacerbation (principal); I12.9 Hypertensive chronic kidney disease with stage 1 through stage 4 chronic kidney disease, or unspecified chronic kidney disease; N18.9 Chronic kidney disease, unspecified; Z88.1 Allergy status to other antibiotic agents; Z88.8 Allergy status to other drugs, medicaments and biological substances; Z88.5 Allergy status to narcotic agent; Z91.041 Radiographic dye allergy status; Z79.899 Other long term (current) drug therapy
CPT/HCPCS: 36415; 80053; 83880; 84484; 85025; 86140; 93005; 93010; 94640; 96374; 96375; 99284; 99285; J2060; J2919; J7620-GY

== ENCOUNTER 2023-09-19 10:43 | Emergency (ER) | payer OTHER, MEDICARE ==
[2023-09-19 10:57] VITALS: BP 133/63; PULSE 88
[2023-09-19 11:25] LABS: BASOPHILS PERCENT AUTO 0.1 % (0.2-1.2); EOSINOPHILS ABSOLUTE AUTO 0.1 x10^3/uL (0.0-0.5); EOSINOPHILS PERCENT AUTO 0.7 % (0.0-4.0); HEMATOCRIT 36.2 % (40.0-52.0); HEMOGLOBIN 12.1 g/dL (14.0-18.0); IMMATURE GRAN ABSOLUTE AUTO 0.18 x10^3/uL (0.00-0.07); LYMPHOCYTES ABSOLUTE AUTO 0.6 x10^3/uL (1.0-4.8); LYMPHOCYTES PERCENT AUTO 7.1 % (25.0-50.0); MEAN CORPUSCULAR HEMOGLOBIN 31.3 pg (26.0-32.0); MEAN CORPUSCULAR HGB CONC 33.4 g/dL (32.0-36.0); MEAN CORPUSCULAR VOLUME 93.5 fL (78.0-93.0); MONOCYTES ABSOLUTE AUTO 0.7 x10^3/uL (0.0-0.8); MONOCYTES PERCENT AUTO 7.9 % (2.0-11.0); NEUTROPHILS ABSOLUTE AUTO 6.9 x10^3/uL (1.8-7.7); NEUTROPHILS PERCENT AUTO 82.1 % (50.0-80.0); PLATELET COUNT,PLT 195 x10^3/uL (130-400); RED BLOOD CELL COUNT 3.87 x10^6/uL (4.5-6.0); WHITE BLOOD CELL COUNT,WBC 8.4 x10^3/uL (4.0-10.0)
[2023-09-19] MEDS: Albuterol/Ipratropium 3.0-0.5 MG/3 ML Neb Soln NEB ONE (11:29)
[2023-09-19 11:46] LABS: A/G RATIO 0.75; ALANINE AMINOTRANSFERASE,ALT 38 U/L (16-63); ALKALINE PHOSPHATASE 114 U/L (46-116); ANION GAP 14.1 mmol/L (5-15); ASPARTATE AMNIOTRANSFERASE,AST 14 U/L (15-37); BILIRUBIN TOTAL 0.5 mg/dL (0.2-1.0); BLOOD UREA NITROGEN,BUN 31 mg/dL (7-18); C-REACTIVE PROTEIN 1.11 mg/dL (<=0.50); CALCIUM 9.3 mg/dL (8.5-10.1); CARBON DIOXIDE,CO2 27 mmol/L (21-32); CHLORIDE,CL 106 mmol/L (98-107); CREATININE 1.7 mg/dL (0.70-1.30); ESTIMATED GFR 39 mL/min (>=60); GLUCOSE RANDOM 89 mg/dL (70-99); MAGNESIUM 1.8 mg/dL (1.8-2.4); POTASSIUM,K 4.1 mmol/L (3.5-5.1); SODIUM,NA 143 mmol/L (136-145)
[2023-09-19] MEDS: Take Home: Amoxicillin/Clavulanate K 875-125 MG Tab, 2 Tab Pack PO ONE (13:05)
[2023-09-19] MEDS: Take Home: Doxycycline 100 MG Cap, 4 Cap Pack PO ONE (13:05)
[2023-09-19] MEDS: Take Home: predniSONE 20 MG, 2 Tab Pack PO ONE ×2 (13:05)
[2023-09-19] MEDS: Magnesium Hydroxide 400 MG/5 ML Susp 30 ML Cup PO ONE (13:05)
== END 2023-09-19 13:13 | disposition home or self-care (01) ==
LOC: VM.ED 10:43
DX: J18.9 Pneumonia, unspecified organism (principal); J44.1 Chronic obstructive pulmonary disease with (acute) exacerbation; K59.00 Constipation, unspecified; K21.9 Gastro-esophageal reflux disease without esophagitis; I12.9 Hypertensive chronic kidney disease with stage 1 through stage 4 chronic kidney disease, or unspecified chronic kidney disease; N18.9 Chronic kidney disease, unspecified; Z79.899 Other long term (current) drug therapy; Z88.8 Allergy status to other drugs, medicaments and biological substances; Z88.1 Allergy status to other antibiotic agents; Z88.5 Allergy status to narcotic agent; Z91.048 Other nonmedicinal substance allergy status
CPT/HCPCS: 36415; 74022; 80053; 83735; 85025; 86140; 94640; 99284; 99285; A9270; J7512; J7620-GY

== ENCOUNTER 2023-09-28 10:41 | Emergency (ER) | payer OTHER, MEDICARE ==
[2023-09-28 12:07] LABS: BASOPHILS PERCENT AUTO 0.1 % (0.2-1.2); EOSINOPHILS PERCENT AUTO 0.2 % (0.0-4.0); HEMATOCRIT 38.6 % (40.0-52.0); IMMATURE GRAN ABSOLUTE AUTO 0.32 x10^3/uL (0.00-0.07); LYMPHOCYTES ABSOLUTE AUTO 0.6 x10^3/uL (1.0-4.8); LYMPHOCYTES PERCENT AUTO 4.9 % (25.0-50.0); MEAN CORPUSCULAR HEMOGLOBIN 31.2 pg (26.0-32.0); MEAN CORPUSCULAR HGB CONC 33.7 g/dL (32.0-36.0); MEAN CORPUSCULAR VOLUME 92.6 fL (78.0-93.0); MONOCYTES ABSOLUTE AUTO 0.7 x10^3/uL (0.0-0.8); MONOCYTES PERCENT AUTO 5.8 % (2.0-11.0); NEUTROPHILS ABSOLUTE AUTO 10.9 x10^3/uL (1.8-7.7); NEUTROPHILS PERCENT AUTO 86.5 % (50.0-80.0); PLATELET COUNT,PLT 148 x10^3/uL (130-400); RED BLOOD CELL COUNT 4.17 x10^6/uL (4.5-6.0); WHITE BLOOD CELL COUNT,WBC 12.6 x10^3/uL (4.0-10.0)
[2023-09-28 12:32] LABS: ALANINE AMINOTRANSFERASE,ALT 80 U/L (16-63); ALBUMIN 3.5 g/dL (3.4-5.0); ALKALINE PHOSPHATASE 106 U/L (46-116); ASPARTATE AMNIOTRANSFERASE,AST 19 U/L (15-37); BILIRUBIN TOTAL 0.6 mg/dL (0.2-1.0); BLOOD UREA NITROGEN,BUN 34 mg/dL (7-18); CALCIUM 9.7 mg/dL (8.5-10.1); CARBON DIOXIDE,CO2 28 mmol/L (21-32); CHLORIDE,CL 101 mmol/L (98-107); CREATININE 1.7 mg/dL (0.70-1.30); GLUCOSE RANDOM 118 mg/dL (70-99); LIPASE 32 U/L (19-71); POTASSIUM,K 4.7 mmol/L (3.5-5.1); SODIUM,NA 139 mmol/L (136-145)
[2023-09-28 12:33] LABS: ANION GAP 14.7 mmol/L (5-15); ESTIMATED GFR 39 mL/min (>=60)
[2023-09-28] MEDS: Iopamidol 612 MG/ML 100 ML Bottle IVPUSH ONE (13:21)
[2023-09-28] MEDS: Take Home: Albuterol 18 GM Inhaler, 1 Inhaler Pack INH PRN (13:24)
[2023-09-28] MEDS: Alum Hydrox/Mag Hydrox/Simeth 30 ML, Lidocaine 2% 15 ML PO ONE (17:04)
[2023-09-28 17:26] VITALS: BP 136/85; PULSE 84
== END 2023-09-28 17:18 | disposition home or self-care (01) ==
LOC: VM.ED 10:41
DX: R06.02 Shortness of breath (principal); K21.00 Gastro-esophageal reflux disease with esophagitis, without bleeding; R14.0 Abdominal distension (gaseous); J44.9 Chronic obstructive pulmonary disease, unspecified; I12.9 Hypertensive chronic kidney disease with stage 1 through stage 4 chronic kidney disease, or unspecified chronic kidney disease; N18.9 Chronic kidney disease, unspecified; Z79.899 Other long term (current) drug therapy; Z88.1 Allergy status to other antibiotic agents; Z88.5 Allergy status to narcotic agent; Z88.8 Allergy status to other drugs, medicaments and biological substances; Z91.048 Other nonmedicinal substance allergy status
CPT/HCPCS: 36415; 71260; 74177; 80053; 83690; 84484; 85025; 85379; 93005; 93010; 99284; 99285; A9270-GY; Q9967

== ENCOUNTER 2023-10-23 01:25 | Emergency (ER) | payer OTHER, MEDICARE ==
[2023-10-23 02:07] LABS: BASOPHILS PERCENT AUTO 0.1 % (0.2-1.2); EOSINOPHILS ABSOLUTE AUTO 0.1 x10^3/uL (0.0-0.5); EOSINOPHILS PERCENT AUTO 0.7 % (0.0-4.0); HEMATOCRIT 37.2 % (40.0-52.0); HEMOGLOBIN 12.5 g/dL (14.0-18.0); LYMPHOCYTES ABSOLUTE AUTO 1.9 x10^3/uL (1.0-4.8); LYMPHOCYTES PERCENT AUTO 19.3 % (25.0-50.0); MEAN CORPUSCULAR HEMOGLOBIN 31.4 pg (26.0-32.0); MEAN CORPUSCULAR HGB CONC 33.6 g/dL (32.0-36.0); MEAN CORPUSCULAR VOLUME 93.5 fL (78.0-93.0); MONOCYTES ABSOLUTE AUTO 0.9 x10^3/uL (0.0-0.8); MONOCYTES PERCENT AUTO 9.6 % (2.0-11.0); NEUTROPHILS ABSOLUTE AUTO 6.7 x10^3/uL (1.8-7.7); NEUTROPHILS PERCENT AUTO 68.3 % (50.0-80.0); PLATELET COUNT,PLT 244 x10^3/uL (130-400); RED BLOOD CELL COUNT 3.98 x10^6/uL (4.5-6.0); WHITE BLOOD CELL COUNT,WBC 9.8 x10^3/uL (4.0-10.0)
[2023-10-23 02:25] LABS: A/G RATIO 0.94; ALANINE AMINOTRANSFERASE,ALT 35 U/L (16-63); ALBUMIN 3.4 g/dL (3.4-5.0); ALKALINE PHOSPHATASE 145 U/L (46-116); ANION GAP 15.5 mmol/L (5-15); ASPARTATE AMNIOTRANSFERASE,AST 21 U/L (15-37); BILIRUBIN TOTAL 0.3 mg/dL (0.2-1.0); BLOOD UREA NITROGEN,BUN 33 mg/dL (7-18); CALCIUM 9.1 mg/dL (8.5-10.1); CARBON DIOXIDE,CO2 29 mmol/L (21-32); CHLORIDE,CL 101 mmol/L (98-107); CREATININE 1.9 mg/dL (0.70-1.30); ESTIMATED GFR 34 mL/min (>=60); GLUCOSE RANDOM 117 mg/dL (70-99); POTASSIUM,K 4.5 mmol/L (3.5-5.1); SODIUM,NA 141 mmol/L (136-145)
[2023-10-23] MEDS: Albuterol/Ipratropium 3.0-0.5 MG/3 ML Neb Soln NEB ONE (02:41)
[2023-10-23 03:03] VITALS: BP 130/68; PULSE 82
== END 2023-10-23 03:10 | disposition home or self-care (01) ==
LOC: VM.ED 01:25
DX: J44.1 Chronic obstructive pulmonary disease with (acute) exacerbation (principal); I12.9 Hypertensive chronic kidney disease with stage 1 through stage 4 chronic kidney disease, or unspecified chronic kidney disease; N18.32 Chronic kidney disease, stage 3b; R06.01 Orthopnea; K21.9 Gastro-esophageal reflux disease without esophagitis; Z79.899 Other long term (current) drug therapy; Z88.1 Allergy status to other antibiotic agents; Z88.5 Allergy status to narcotic agent; Z88.8 Allergy status to other drugs, medicaments and biological substances; Z91.048 Other nonmedicinal substance allergy status
CPT/HCPCS: 36415; 71046; 80053; 83605; 85025; 93005; 94640; 99285; J7620-GY

== ENCOUNTER 2024-01-12 12:13 | Emergency (ER) | payer OTHER, MEDICARE ==
[2024-01-12] MEDS: Albuterol/Ipratropium 3.0-0.5 MG/3 ML Neb Soln ONE (12:49)
[2024-01-12] MEDS ORDERED: Albuterol/Ipratropium 3.0-0.5 MG/3 ML Neb Soln NEB ONE (12:49)
[2024-01-12] MEDS ORDERED: Sodium Chloride 0.9% 10 ML Syringe FLUSH PRN (12:52)
[2024-01-12] MEDS: Dexamethasone 4 MG/ML SDV ONE (13:08)
[2024-01-12 13:10] LABS: BASOPHILS PERCENT AUTO 0.1 % (0.2-1.2); EOSINOPHILS PERCENT AUTO 0.4 % (0.0-4.0); HEMOGLOBIN 12.1 g/dL (14.0-18.0); IMMATURE GRAN ABSOLUTE AUTO 0.05 x10^3/uL (0.00-0.07); LYMPHOCYTES ABSOLUTE AUTO 0.8 x10^3/uL (1.0-4.8); MEAN CORPUSCULAR HEMOGLOBIN 29.4 pg (26.0-32.0); MEAN CORPUSCULAR HGB CONC 32.7 g/dL (32.0-36.0); MONOCYTES ABSOLUTE AUTO 0.6 x10^3/uL (0.0-0.8); MONOCYTES PERCENT AUTO 6.6 % (2.0-11.0); NEUTROPHILS ABSOLUTE AUTO 8.1 x10^3/uL (1.8-7.7); NEUTROPHILS PERCENT AUTO 84.4 % (50.0-80.0); PLATELET COUNT,PLT 225 x10^3/uL (130-400); RED BLOOD CELL COUNT 4.11 x10^6/uL (4.5-6.0); WHITE BLOOD CELL COUNT,WBC 9.6 x10^3/uL (4.0-10.0)
[2024-01-12] MEDS: Dexamethasone 4 MG/ML SDV IVPUSH ONE (13:12)
[2024-01-12] MEDS: Prochlorperazine 10 MG/2 ML SDV IV ONE (13:14)
[2024-01-12] MEDS: Ketorolac 15 MG/ML SDV IVPUSH ONE (13:16)
[2024-01-12 13:34] LABS: A/G RATIO 0.89; ALANINE AMINOTRANSFERASE,ALT 36 U/L (16-63); ALBUMIN 3.3 g/dL (3.4-5.0); ALKALINE PHOSPHATASE 157 U/L (46-116); ASPARTATE AMNIOTRANSFERASE,AST 16 U/L (15-37); BILIRUBIN TOTAL 0.4 mg/dL (0.2-1.0); BLOOD UREA NITROGEN,BUN 24 mg/dL (7-18); CALCIUM 9.2 mg/dL (8.5-10.1); CARBON DIOXIDE,CO2 30 mmol/L (21-32); CHLORIDE,CL 103 mmol/L (98-107); CREATININE 1.6 mg/dL (0.70-1.30); GLUCOSE RANDOM 114 mg/dL (70-99); POTASSIUM,K 4.9 mmol/L (3.5-5.1); PRO B-TYPE NATRIUR PEPT,BNPPRO 202 pg/mL (<=450); SODIUM,NA 141 mmol/L (136-145)
[2024-01-12] MEDS: EPINEPHrine 1 MG/1 ML Amp ONE (13:34)
[2024-01-12] MEDS: diphenhydrAMINE 50 MG/ML SDV ONE (13:35)
[2024-01-12 13:40] LABS: ANION GAP 12.9 mmol/L (5-15); ESTIMATED GFR 41 mL/min (>=60)
[2024-01-12] MEDS: diphenhydrAMINE 50 MG/ML SDV IVPUSH ONE (13:42)
[2024-01-12] MEDS: Lactated Ringers 1,000 ML IV ONE (13:52)
[2024-01-12] MEDS: Ondansetron 4 MG/2 ML SDV IVPUSH ONE (14:02)
[2024-01-12] MEDS: Acetaminophen 500 MG Tab PO ONE (14:05)
[2024-01-12] MEDS: LORazepam 2 MG/ML SDV IVPUSH ONE (14:20)
[2024-01-12 17:04] VITALS: BP 148/67; PULSE 89
== END 2024-01-12 15:00 | disposition home or self-care (01) ==
LOC: VM.ED 12:13
DX: J44.1 Chronic obstructive pulmonary disease with (acute) exacerbation (principal); G44.209 Tension-type headache, unspecified, not intractable; T43.3X5A Adverse effect of phenothiazine antipsychotics and neuroleptics, initial encounter; I12.9 Hypertensive chronic kidney disease with stage 1 through stage 4 chronic kidney disease, or unspecified chronic kidney disease; N18.9 Chronic kidney disease, unspecified; K21.9 Gastro-esophageal reflux disease without esophagitis; Z79.899 Other long term (current) drug therapy; Z91.048 Other nonmedicinal substance allergy status; Z88.5 Allergy status to narcotic agent; Z88.1 Allergy status to other antibiotic agents; Z88.8 Allergy status to other drugs, medicaments and biological substances
CPT/HCPCS: 71045; 80053; 83880; 84484; 85025; 87428-QW; 93005; 96361; 96374; 96375; 99284; 99285-25; A9270-GY; J0780; J1100; J1200; J1885; J2060; J7120; J7620-GY

== ENCOUNTER 2024-01-24 14:02 | Emergency (ER) | payer OTHER, MEDICARE ==
[2024-01-24] MEDS ORDERED: Sodium Chloride 0.9% 10 ML Syringe FLUSH PRN (14:18)
[2024-01-24 14:36] LABS: BASOPHILS PERCENT AUTO 0.1 % (0.2-1.2); EOSINOPHILS PERCENT AUTO 0.2 % (0.0-4.0); HEMATOCRIT 38.9 % (40.0-52.0); HEMOGLOBIN 12.8 g/dL (14.0-18.0); IMMATURE GRAN ABSOLUTE AUTO 0.07 x10^3/uL (0.00-0.07); LYMPHOCYTES ABSOLUTE AUTO 0.9 x10^3/uL (1.0-4.8); MEAN CORPUSCULAR HEMOGLOBIN 29.6 pg (26.0-32.0); MEAN CORPUSCULAR HGB CONC 32.9 g/dL (32.0-36.0); MONOCYTES ABSOLUTE AUTO 0.8 x10^3/uL (0.0-0.8); MONOCYTES PERCENT AUTO 6.3 % (2.0-11.0); NEUTROPHILS ABSOLUTE AUTO 11.2 x10^3/uL (1.8-7.7); NEUTROPHILS PERCENT AUTO 85.9 % (50.0-80.0); PLATELET COUNT,PLT 222 x10^3/uL (130-400); RED BLOOD CELL COUNT 4.32 x10^6/uL (4.5-6.0); WHITE BLOOD CELL COUNT,WBC 13.1 x10^3/uL (4.0-10.0)
[2024-01-24 14:51] LABS: PROTHROMBIN TIME 10.5 SEC (8.9-11.5); PTT,PARTIAL THROMBOPLSTIN TIME 30.1 SEC (21.9-33.8)
[2024-01-24 14:56] LABS: LACTIC ACID 2.1 mmol/L (0.4-2.0)
[2024-01-24] MEDS ORDERED: HYDROmorphone 0.5 MG/0.5 ML Syringe IVPUSH ONE (14:57)
[2024-01-24 15:01] LABS: A/G RATIO 0.83; ALANINE AMINOTRANSFERASE,ALT 75 U/L (16-63); ALBUMIN 3.3 g/dL (3.4-5.0); ALKALINE PHOSPHATASE 167 U/L (46-116); ANION GAP 13.4 mmol/L (5-15); ASPARTATE AMNIOTRANSFERASE,AST 26 U/L (15-37); BILIRUBIN TOTAL 0.5 mg/dL (0.2-1.0); BLOOD UREA NITROGEN,BUN 30 mg/dL (7-18); C-REACTIVE PROTEIN 2.97 mg/dL (<=0.50); CALCIUM 9.2 mg/dL (8.5-10.1); CARBON DIOXIDE,CO2 29 mmol/L (21-32); CHLORIDE,CL 100 mmol/L (98-107); CREATININE 1.8 mg/dL (0.70-1.30); ESTIMATED GFR 36 mL/min (>=60); GLUCOSE RANDOM 156 mg/dL (70-99); MAGNESIUM 2.7 mg/dL (1.8-2.4); POTASSIUM,K 4.4 mmol/L (3.5-5.1); PRO B-TYPE NATRIUR PEPT,BNPPRO 209 pg/mL (<=450); PROTEIN TOTAL,TP 7.3 g/dL (6.4-8.2); SODIUM,NA 138 mmol/L (136-145)
[2024-01-24] MEDS: methylPREDNISolone Sodium Succinate 125 MG/2 ML SDV IV ONE (15:51)
[2024-01-24] MEDS: Albuterol/Ipratropium 3.0-0.5 MG/3 ML Neb Soln NEB ONE (15:53)
[2024-01-24] MEDS: cefTRIAXone 1 GM Vial IVPUSH ONE (15:53)
[2024-01-24] MEDS: Iopamidol 612 MG/ML 100 ML Bottle IVPUSH ONE (16:59)
[2024-01-24] MEDS: LORazepam 2 MG/ML SDV IVPUSH ONE ×2 (17:04→17:20)
[2024-01-24] MEDS: Acetaminophen 500 MG Tab PO ONE (17:14)
[2024-01-24 17:30] VITALS: BP 129/87; PULSE 102
[2024-01-24] MEDS: Take Home: Amoxicillin/Clavulanate K 875-125 MG Tab, 2 Tab Pack PO ONE (18:14)
[2024-01-24] MEDS: Take Home: Doxycycline 100 MG Cap, 4 Cap Pack PO ONE (18:14)
== END 2024-01-24 18:20 | disposition home or self-care (01) ==
LOC: VM.ED 14:02
DX: J44.1 Chronic obstructive pulmonary disease with (acute) exacerbation (principal); K57.92 Diverticulitis of intestine, part unspecified, without perforation or abscess without bleeding; I10 Essential (primary) hypertension; J44.9 Chronic obstructive pulmonary disease, unspecified; K21.9 Gastro-esophageal reflux disease without esophagitis; Z79.899 Other long term (current) drug therapy; Z88.8 Allergy status to other drugs, medicaments and biological substances; Z88.1 Allergy status to other antibiotic agents; Z88.9 Allergy status to unspecified drugs, medicaments and biological substances; Z88.5 Allergy status to narcotic agent; Z91.041 Radiographic dye allergy status
CPT/HCPCS: 71045; 74177; 80053; 83605; 83735; 83880; 84484; 85025; 85610; 85730; 86140; 93005; 94640; 94760; 96374; 96375; 99284; 99285-25; A9270-GY; J0696; J2060; J2919; J7620-GY; Q9967

== ENCOUNTER 2024-02-02 07:52 | Emergency (ER) | payer OTHER, MEDICARE ==
[2024-02-02] MEDS ORDERED: Sodium Chloride 0.9% 10 ML Syringe FLUSH PRN (08:09)
[2024-02-02 08:16] LABS: HEMOGLOBIN 12.2 g/dL (14.0-18.0); MEAN CORPUSCULAR HEMOGLOBIN 29.3 pg (26.0-32.0); MEAN CORPUSCULAR VOLUME 88.7 fL (78.0-93.0); PLATELET COUNT,PLT 239 x10^3/uL (130-400); RED BLOOD CELL COUNT 4.17 x10^6/uL (4.5-6.0); WHITE BLOOD CELL COUNT,WBC 14.2 x10^3/uL (4.0-10.0)
[2024-02-02 08:29] LABS: BAND PERCENT MAN 2 % (0-6); LYMPHOCYTES ABSOLUTE MAN 1.8 x10^3/uL (1.0-4.8); LYMPHOCYTES PERCENT MAN 13 % (25-50); MONOCYTES ABSOLUTE MAN 0.6 x10^3/uL (0.0-0.8); MONOCYTES PERCENT MAN 4 % (2-11); NEUTROPHILS ABSOLUTE MAN 11.8 x10^3/uL (1.8-7.7); PLATELET COUNT ESTIMATE ADEQUATE; SEG NEUTROPHILS PERCENT MAN 81 % (50-80)
[2024-02-02 08:32] LABS: A/G RATIO 0.79; ALBUMIN 3.1 g/dL (3.4-5.0); BILIRUBIN TOTAL 0.5 mg/dL (0.2-1.0); CALCIUM 9.3 mg/dL (8.5-10.1); CREATININE 1.7 mg/dL (0.70-1.30); EST CRCL DRUG DOSING (CG) 29.62 mL/min; POTASSIUM,K 4.7 mmol/L (3.5-5.1)
[2024-02-02 08:37] LABS: ANION GAP 10.7 mmol/L (5-15)
[2024-02-02] MEDS: Iopamidol 612 MG/ML 100 ML Bottle IVPUSH ONE (09:13)
[2024-02-02 09:17] LABS: APPEARANCE,URINE CLEAR (CLEAR); BILIRUBIN,URINE NEGATIVE (NEGATIVE); COLOR,URINE YELLOW (YELLOW); GLUCOSE,URINE NEGATIVE (NEGATIVE); KETONES,URINE NEGATIVE (NEGATIVE); LEUKOCYTE ESTERASE,URINE SMALL (NEGATIVE); NITRITE,URINE NEGATIVE (NEGATIVE); OCCULT BLOOD,URINE TRACE-INTACT (NEGATIVE); PH,URINE 8.5 (5.0-8.0); PROTEIN,URINE TRACE mg/dL (NEGATIVE); UROBILINOGEN,URINE 0.2 EU/dL (0.2)
[2024-02-02 09:23] LABS: BACTERIA,URINE OCCASIONAL /HPF (NOT SEEN); MUCUS,URINE NOT SEEN /LPF (NOT SEEN); RBC,URINE 0-5 /HPF (NOT SEEN); SQUAMOUS EPITHELIAL CELLS,UR OCCASIONAL /HPF (NOT SEEN); WBC,URINE 0-5 /HPF (NOT SEEN)
[2024-02-02 09:24] LABS: AMORPHOUS SEDIMENT,URINE NOT SEEN
[2024-02-02] MEDS: Ondansetron 4 MG/2 ML SDV IVPUSH ONE (09:36)
[2024-02-02] MEDS: fentaNYL 50 MCG/ML SDV IVPUSH ONE (09:38)
[2024-02-02] MEDS: Albuterol/Ipratropium 3.0-0.5 MG/3 ML Neb Soln NEB ONE (09:50)
[2024-02-02 10:25] VITALS: PULSE 104
[2024-02-02] MEDS: Albuterol 0.083% 2.5 MG/3 ML Neb Soln NEB ONE (10:29)
[2024-02-02] MEDS: LORazepam 2 MG/ML SDV IVPUSH ONE (10:30)
[2024-02-02 10:32] VITALS: BP 149/69
== END 2024-02-02 10:48 | disposition home or self-care (01) ==
LOC: VM.ED 07:52
DX: R10.13 Epigastric pain (principal); R10.11 Right upper quadrant pain; J44.1 Chronic obstructive pulmonary disease with (acute) exacerbation; I12.9 Hypertensive chronic kidney disease with stage 1 through stage 4 chronic kidney disease, or unspecified chronic kidney disease; N18.9 Chronic kidney disease, unspecified; K21.9 Gastro-esophageal reflux disease without esophagitis; Z79.899 Other long term (current) drug therapy; Z91.048 Other nonmedicinal substance allergy status; Z88.5 Allergy status to narcotic agent; Z88.1 Allergy status to other antibiotic agents
CPT/HCPCS: 36415; 74177; 80053; 81001; 83690; 85025; 94640; 96374; 96375; 99284; 99285-25; J2060; J2405; J3010; J7613-GY; J7620-GY; Q9967

== ENCOUNTER 2024-02-22 11:34 | Emergency (ER) | payer MEDICARE, OTHER ==
[2024-02-22] MEDS ORDERED: Sodium Chloride 0.9% 10 ML Syringe FLUSH PRN (12:32)
[2024-02-22 13:05] LABS: BASOPHILS PERCENT AUTO 0.1 % (0.2-1.2); EOSINOPHILS PERCENT AUTO 0.3 % (0.0-4.0); HEMATOCRIT 33.1 % (40.0-52.0); HEMOGLOBIN 10.5 g/dL (14.0-18.0); LYMPHOCYTES ABSOLUTE AUTO 0.5 x10^3/uL (1.0-4.8); MEAN CORPUSCULAR HEMOGLOBIN 28.8 pg (26.0-32.0); MEAN CORPUSCULAR HGB CONC 31.7 g/dL (32.0-36.0); MEAN CORPUSCULAR VOLUME 90.7 fL (78.0-93.0); MONOCYTES ABSOLUTE AUTO 0.4 x10^3/uL (0.0-0.8); MONOCYTES PERCENT AUTO 5.4 % (2.0-11.0); NEUTROPHILS ABSOLUTE AUTO 6.9 x10^3/uL (1.8-7.7); NEUTROPHILS PERCENT AUTO 86.3 % (50.0-80.0); PLATELET COUNT,PLT 216 x10^3/uL (130-400); RED BLOOD CELL COUNT 3.65 x10^6/uL (4.5-6.0)
[2024-02-22 13:09] LABS: LYMPHOCYTES PERCENT AUTO 6.6 % (25.0-50.0)
[2024-02-22 13:28] LABS: A/G RATIO 0.89; ALANINE AMINOTRANSFERASE,ALT 54 U/L (16-63); ALBUMIN 3.1 g/dL (3.4-5.0); ALKALINE PHOSPHATASE 160 U/L (46-116); ANION GAP 13.4 mmol/L (5-15); ASPARTATE AMNIOTRANSFERASE,AST 20 U/L (15-37); BILIRUBIN TOTAL 0.4 mg/dL (0.2-1.0); BLOOD UREA NITROGEN,BUN 29 mg/dL (7-18); CALCIUM 9.1 mg/dL (8.5-10.1); CARBON DIOXIDE,CO2 30 mmol/L (21-32); CHLORIDE,CL 102 mmol/L (98-107); CREATININE 1.5 mg/dL (0.70-1.30); ESTIMATED GFR 45 mL/min (>=60); GLUCOSE RANDOM 129 mg/dL (70-99); POTASSIUM,K 4.4 mmol/L (3.5-5.1); PROTEIN TOTAL,TP 6.6 g/dL (6.4-8.2); SODIUM,NA 141 mmol/L (136-145)
[2024-02-22] MEDS: Albuterol/Ipratropium 3.0-0.5 MG/3 ML Neb Soln NEB ONE (14:35)
[2024-02-22 16:17] VITALS: BP 144/71; PULSE 77
== END 2024-02-22 15:15 | disposition home or self-care (01) ==
LOC: VM.ED 11:34
DX: F41.9 Anxiety disorder, unspecified (principal); J44.1 Chronic obstructive pulmonary disease with (acute) exacerbation; I12.9 Hypertensive chronic kidney disease with stage 1 through stage 4 chronic kidney disease, or unspecified chronic kidney disease; N18.9 Chronic kidney disease, unspecified; K21.9 Gastro-esophageal reflux disease without esophagitis; Z88.5 Allergy status to narcotic agent; Z88.1 Allergy status to other antibiotic agents; Z91.048 Other nonmedicinal substance allergy status; Z79.899 Other long term (current) drug therapy
CPT/HCPCS: 36415; 71045; 80053; 83880; 84484; 85025; 99284; 99285; J7620-GY

== ENCOUNTER 2024-02-23 17:00 | Inpatient (IN) | payer OTHER ==
[2024-02-23] MEDS ORDERED: Albuterol/Ipratropium 3.0-0.5 MG/3 ML Neb Soln NEB ONE (17:19)
[2024-02-23] MEDS: ALPRAZolam 0.25 MG Tab PO ONE (17:47)
[2024-02-23] MEDS: Benzonatate 100 MG Cap PO PRN (17:49)
[2024-02-23 18:08] LABS: BASOPHILS PERCENT AUTO 0.1 % (0.2-1.2); EOSINOPHILS PERCENT AUTO 0.5 % (0.0-4.0); HEMATOCRIT 32.9 % (40.0-52.0); HEMOGLOBIN 10.8 g/dL (14.0-18.0); IMMATURE GRAN ABSOLUTE AUTO 0.08 x10^3/uL (0.00-0.07); LYMPHOCYTES ABSOLUTE AUTO 0.7 x10^3/uL (1.0-4.8); LYMPHOCYTES PERCENT AUTO 8.8 % (25.0-50.0); MEAN CORPUSCULAR HGB CONC 32.8 g/dL (32.0-36.0); MEAN CORPUSCULAR VOLUME 88.4 fL (78.0-93.0); MONOCYTES ABSOLUTE AUTO 0.7 x10^3/uL (0.0-0.8); MONOCYTES PERCENT AUTO 8.5 % (2.0-11.0); NEUTROPHILS ABSOLUTE AUTO 6.8 x10^3/uL (1.8-7.7); NEUTROPHILS PERCENT AUTO 81.1 % (50.0-80.0); PLATELET COUNT,PLT 226 x10^3/uL (130-400); RED BLOOD CELL COUNT 3.72 x10^6/uL (4.5-6.0); WHITE BLOOD CELL COUNT,WBC 8.4 x10^3/uL (4.0-10.0)
[2024-02-23 18:22] LABS: A/G RATIO 0.91; ALANINE AMINOTRANSFERASE,ALT 55 U/L (16-63); ALBUMIN 3.1 g/dL (3.4-5.0); ALKALINE PHOSPHATASE 155 U/L (46-116); ASPARTATE AMNIOTRANSFERASE,AST 23 U/L (15-37); BILIRUBIN TOTAL 0.4 mg/dL (0.2-1.0); BLOOD UREA NITROGEN,BUN 29 mg/dL (7-18); C-REACTIVE PROTEIN 0.56 mg/dL (<=0.50); CALCIUM 9.6 mg/dL (8.5-10.1); CARBON DIOXIDE,CO2 29 mmol/L (21-32); CHLORIDE,CL 102 mmol/L (98-107); CREATININE 1.8 mg/dL (0.70-1.30); GLUCOSE RANDOM 108 mg/dL (70-99); POTASSIUM,K 3.8 mmol/L (3.5-5.1); PROTEIN TOTAL,TP 6.5 g/dL (6.4-8.2); SODIUM,NA 141 mmol/L (136-145)
[2024-02-23 18:23] LABS: ANION GAP 13.8 mmol/L (5-15); ESTIMATED GFR 36 mL/min (>=60)
[2024-02-23] MEDS: Azithromycin 250 MG Tab PO ONE (19:25)
[2024-02-23] MEDS: methylPREDNISolone Sodium Succinate 125 MG/2 ML SDV IVPUSH ONE (19:34)
[2024-02-23] MEDS: cefTRIAXone 2 GM Vial IVPUSH ONE (19:36)
[2024-02-23] MEDS ORDERED: Acetaminophen 325 MG Tab PO PRN (21:35)
[2024-02-23] MEDS ORDERED: Triamcinolone Acetonide 0.1% Crm 15 GM Tube TOP PRN (21:39)
[2024-02-23] MEDS ORDERED: Bisacodyl 5 MG Tab PO PRN (21:39)
[2024-02-23] MEDS: Arformoterol 15 MCG/2 ML Neb Soln INH SCH (22:00)
[2024-02-23] MEDS: Mometasone Furoate Powder 220 MCG/Puff 14 Dose Inhaler INH SCH (22:00)
[2024-02-23] MEDS: Hypromellose 0.3% Ophth Soln 15 ML Bottle EYEBOTH SCH (22:44)
[2024-02-23] MEDS: Latanoprost 0.005% Ophth Soln 2.5 ML Bottle EYEBOTH SCH (22:44)
[2024-02-23] MEDS: Mirtazapine 15 MG Tab PO SCH (22:45)
[2024-02-23] MEDS: Heparin Sodium 5,000 Units/ML Vial SUBCUT SCH (22:46)
[2024-02-23] MEDS: Sodium Chloride 0.9% 10 ML Syringe FLUSH SCH (22:47)
[2024-02-23] MEDS: Budesonide 0.5 MG/2 ML Neb Susp INH SCH (23:00)
[2024-02-23] MEDS: Beta-Carotene (Vitamin A) w/Vitamin C & E plus Minerals Tab PO SCH (23:00)
[2024-02-24] MEDS: methylPREDNISolone Sodium Succinate 125 MG/2 ML SDV IVPUSH SCH (03:00)
[2024-02-24] MEDS ORDERED: methylPREDNISolone Sod Succ 125 MG in Sodium Chloride 0.9% 100 ML IV SCH (03:17)
[2024-02-24] MEDS ORDERED: guaiFENesin/Dextromethorphan 100-10 MG/5 ML Soln 10 ML Cup PO PRN (06:13)
[2024-02-24 08:02] LABS: BASOPHILS PERCENT AUTO 0.3 % (0.2-1.2); HEMATOCRIT 33.3 % (40.0-52.0); HEMOGLOBIN 10.7 g/dL (14.0-18.0); IMMATURE GRAN ABSOLUTE AUTO 0.07 x10^3/uL (0.00-0.07); LYMPHOCYTES ABSOLUTE AUTO 0.4 x10^3/uL (1.0-4.8); LYMPHOCYTES PERCENT AUTO 6.4 % (25.0-50.0); MEAN CORPUSCULAR HGB CONC 32.1 g/dL (32.0-36.0); MEAN CORPUSCULAR VOLUME 90.2 fL (78.0-93.0); MONOCYTES ABSOLUTE AUTO 0.1 x10^3/uL (0.0-0.8); MONOCYTES PERCENT AUTO 0.7 % (2.0-11.0); NEUTROPHILS ABSOLUTE AUTO 6.3 x10^3/uL (1.8-7.7); NEUTROPHILS PERCENT AUTO 91.6 % (50.0-80.0); PLATELET COUNT,PLT 222 x10^3/uL (130-400); RED BLOOD CELL COUNT 3.69 x10^6/uL (4.5-6.0); WHITE BLOOD CELL COUNT,WBC 6.9 x10^3/uL (4.0-10.0)
[2024-02-24] MEDS: Tamsulosin 0.4 MG Cap.ER PO SCH (08:26)
[2024-02-24] MEDS: Citalopram 20 MG Tab PO SCH (08:26)
[2024-02-24] MEDS: Furosemide 20 MG Tab PO SCH (08:26)
[2024-02-24] MEDS: Allopurinol 100 MG Tab PO SCH (08:26)
[2024-02-24] MEDS: amLODIPine 2.5 MG Tab PO SCH (08:26)
[2024-02-24] MEDS ORDERED: Miconazole 2% Vaginal Crm 45 GM Tube TOP PRN (09:04)
[2024-02-24 09:22] LABS: A/G RATIO 0.81; ALBUMIN 2.9 g/dL (3.4-5.0); BILIRUBIN TOTAL 0.4 mg/dL (0.2-1.0); CALCIUM 9.2 mg/dL (8.5-10.1); CREATININE 1.6 mg/dL (0.70-1.30); EST CRCL DRUG DOSING (CG) 29.35 mL/min; POTASSIUM,K 4.2 mmol/L (3.5-5.1); PROTEIN TOTAL,TP 6.5 g/dL (6.4-8.2)
[2024-02-24 09:23] LABS: ANION GAP 17.2 mmol/L (5-15)
[2024-02-24] MEDS: LORazepam 0.5 MG Tab PO PRN (14:28)
[2024-02-24] MEDS: REVEFENACIN 175 MCG/3 ML INH SCH (16:40)
[2024-02-24] MEDS: Azithromycin 500 MG in Sodium Chloride 0.9% 250 ML IV SCH (20:18)
[2024-02-24] MEDS: cefTRIAXone 2 GM Vial IVPUSH SCH (20:20)
[2024-02-25 05:07] LABS: BORDETELLA PARAPERT IS1001 Not Detected (Not Detected)
[2024-02-25 07:03] LABS: BASOPHILS PERCENT AUTO 0.1 % (0.2-1.2); HEMATOCRIT 31.4 % (40.0-52.0); HEMOGLOBIN 10.4 g/dL (14.0-18.0); IMMATURE GRAN ABSOLUTE AUTO 0.06 x10^3/uL (0.00-0.07); LYMPHOCYTES ABSOLUTE AUTO 0.6 x10^3/uL (1.0-4.8); MEAN CORPUSCULAR HEMOGLOBIN 28.9 pg (26.0-32.0); MEAN CORPUSCULAR HGB CONC 33.1 g/dL (32.0-36.0); MEAN CORPUSCULAR VOLUME 87.2 fL (78.0-93.0); MONOCYTES ABSOLUTE AUTO 0.5 x10^3/uL (0.0-0.8); MONOCYTES PERCENT AUTO 4.2 % (2.0-11.0); NEUTROPHILS ABSOLUTE AUTO 10.9 x10^3/uL (1.8-7.7); NEUTROPHILS PERCENT AUTO 90.2 % (50.0-80.0); PLATELET COUNT,PLT 251 x10^3/uL (130-400); WHITE BLOOD CELL COUNT,WBC 12.1 x10^3/uL (4.0-10.0)
[2024-02-25 07:14] LABS: BLOOD UREA NITROGEN,BUN 40 mg/dL (7-18); CARBON DIOXIDE,CO2 26 mmol/L (21-32); CHLORIDE,CL 103 mmol/L (98-107); CREATININE 1.6 mg/dL (0.70-1.30); GLUCOSE RANDOM 137 mg/dL (70-99); SODIUM,NA 140 mmol/L (136-145)
[2024-02-25 07:17] LABS: ESTIMATED GFR 41 mL/min (>=60)
[2024-02-25] MEDS: methylPREDNISolone Sodium Succinate 125 MG/2 ML SDV IVPUSH SCH (08:09)
[2024-02-25] MEDS: Arformoterol 15 MCG/2 ML Neb Soln INH SCH (20:57)
[2024-02-26 07:11] LABS: BLOOD UREA NITROGEN,BUN 44 mg/dL (7-18); CALCIUM 8.8 mg/dL (8.5-10.1); CARBON DIOXIDE,CO2 28 mmol/L (21-32); CHLORIDE,CL 105 mmol/L (98-107); CREATININE 1.6 mg/dL (0.70-1.30); GLUCOSE RANDOM 92 mg/dL (70-99); SODIUM,NA 142 mmol/L (136-145)
[2024-02-26 07:13] LABS: BASOPHILS PERCENT AUTO 0.1 % (0.2-1.2); HEMATOCRIT 32.8 % (40.0-52.0); HEMOGLOBIN 10.6 g/dL (14.0-18.0); IMMATURE GRAN ABSOLUTE AUTO 0.14 x10^3/uL (0.00-0.07); LYMPHOCYTES ABSOLUTE AUTO 0.9 x10^3/uL (1.0-4.8); LYMPHOCYTES PERCENT AUTO 7.9 % (25.0-50.0); MEAN CORPUSCULAR HEMOGLOBIN 28.6 pg (26.0-32.0); MEAN CORPUSCULAR HGB CONC 32.3 g/dL (32.0-36.0); MEAN CORPUSCULAR VOLUME 88.6 fL (78.0-93.0); MONOCYTES ABSOLUTE AUTO 0.9 x10^3/uL (0.0-0.8); MONOCYTES PERCENT AUTO 7.8 % (2.0-11.0); NEUTROPHILS ABSOLUTE AUTO 9.8 x10^3/uL (1.8-7.7); PLATELET COUNT,PLT 259 x10^3/uL (130-400); WHITE BLOOD CELL COUNT,WBC 11.8 x10^3/uL (4.0-10.0)
[2024-02-26 07:22] LABS: ESTIMATED GFR 41 mL/min (>=60)
[2024-02-27 08:08] LABS: BASOPHILS PERCENT AUTO 0.1 % (0.2-1.2); HEMATOCRIT 32.8 % (40.0-52.0); HEMOGLOBIN 10.7 g/dL (14.0-18.0); IMMATURE GRAN ABSOLUTE AUTO 0.29 x10^3/uL (0.00-0.07); LYMPHOCYTES ABSOLUTE AUTO 1.2 x10^3/uL (1.0-4.8); LYMPHOCYTES PERCENT AUTO 10.4 % (25.0-50.0); MEAN CORPUSCULAR HEMOGLOBIN 28.8 pg (26.0-32.0); MEAN CORPUSCULAR HGB CONC 32.6 g/dL (32.0-36.0); MEAN CORPUSCULAR VOLUME 88.2 fL (78.0-93.0); MONOCYTES ABSOLUTE AUTO 1.1 x10^3/uL (0.0-0.8); MONOCYTES PERCENT AUTO 9.3 % (2.0-11.0); NEUTROPHILS ABSOLUTE AUTO 8.8 x10^3/uL (1.8-7.7); NEUTROPHILS PERCENT AUTO 77.6 % (50.0-80.0); PLATELET COUNT,PLT 237 x10^3/uL (130-400); RED BLOOD CELL COUNT 3.72 x10^6/uL (4.5-6.0); WHITE BLOOD CELL COUNT,WBC 11.4 x10^3/uL (4.0-10.0)
[2024-02-27 08:16] LABS: CALCIUM 8.7 mg/dL (8.5-10.1); CREATININE 1.5 mg/dL (0.70-1.30); POTASSIUM,K 4.1 mmol/L (3.5-5.1)
[2024-02-27 08:52] LABS: ANION GAP 12.1 mmol/L (5-15); EST CRCL DRUG DOSING (CG) 31.31 mL/min
[2024-02-27] MEDS: Albuterol/Ipratropium 3.0-0.5 MG/3 ML Neb Soln NEB PRN (12:32)
[2024-02-28 08:10] LABS: BASOPHILS PERCENT AUTO 0.1 % (0.2-1.2); EOSINOPHILS PERCENT AUTO 0.2 % (0.0-4.0); HEMATOCRIT 35.4 % (40.0-52.0); HEMOGLOBIN 11.4 g/dL (14.0-18.0); IMMATURE GRAN ABSOLUTE AUTO 0.46 x10^3/uL (0.00-0.07); LYMPHOCYTES ABSOLUTE AUTO 1.3 x10^3/uL (1.0-4.8); LYMPHOCYTES PERCENT AUTO 12.3 % (25.0-50.0); MEAN CORPUSCULAR HEMOGLOBIN 28.4 pg (26.0-32.0); MEAN CORPUSCULAR HGB CONC 32.2 g/dL (32.0-36.0); MEAN CORPUSCULAR VOLUME 88.1 fL (78.0-93.0); MONOCYTES ABSOLUTE AUTO 0.8 x10^3/uL (0.0-0.8); MONOCYTES PERCENT AUTO 8.1 % (2.0-11.0); NEUTROPHILS ABSOLUTE AUTO 7.8 x10^3/uL (1.8-7.7); NEUTROPHILS PERCENT AUTO 74.9 % (50.0-80.0); PLATELET COUNT,PLT 230 x10^3/uL (130-400); RED BLOOD CELL COUNT 4.02 x10^6/uL (4.5-6.0); WHITE BLOOD CELL COUNT,WBC 10.4 x10^3/uL (4.0-10.0)
[2024-02-28 08:36] LABS: A/G RATIO 0.85; ALANINE AMINOTRANSFERASE,ALT 101 U/L (16-63); ALBUMIN 2.9 g/dL (3.4-5.0); ALKALINE PHOSPHATASE 137 U/L (46-116); ASPARTATE AMNIOTRANSFERASE,AST 28 U/L (15-37); BILIRUBIN TOTAL 0.3 mg/dL (0.2-1.0); BLOOD UREA NITROGEN,BUN 43 mg/dL (7-18); CALCIUM 9.1 mg/dL (8.5-10.1); CARBON DIOXIDE,CO2 28 mmol/L (21-32); CHLORIDE,CL 104 mmol/L (98-107); CREATININE 1.4 mg/dL (0.70-1.30); EST CRCL DRUG DOSING (CG) 33.55 mL/min; GLUCOSE RANDOM 79 mg/dL (70-99); POTASSIUM,K 3.9 mmol/L (3.5-5.1); PRO B-TYPE NATRIUR PEPT,BNPPRO 394 pg/mL (<=450); PROTEIN TOTAL,TP 6.3 g/dL (6.4-8.2); SODIUM,NA 141 mmol/L (136-145)
[2024-02-28 08:41] LABS: ANION GAP 12.9 mmol/L (5-15); C-REACTIVE PROTEIN < 0.50 mg/dL (<=0.50); ESTIMATED GFR 49 mL/min (>=60)
[2024-02-28] MEDS ORDERED: methylPREDNISolone Sodium Succinate 40 MG/1 ML SDV IVPUSH SCH (09:00)
[2024-02-28] MEDS: Cefuroxime 250 MG Tab PO SCH (09:08)
[2024-02-28] MEDS: predniSONE 20 MG Tab PO SCH (09:13)
[2024-02-29 07:50] LABS: A/G RATIO 0.84; ALBUMIN 2.7 g/dL (3.4-5.0); BILIRUBIN TOTAL 0.3 mg/dL (0.2-1.0); CALCIUM 8.8 mg/dL (8.5-10.1); CREATININE 1.5 mg/dL (0.70-1.30); EST CRCL DRUG DOSING (CG) 31.31 mL/min; PROTEIN TOTAL,TP 5.9 g/dL (6.4-8.2)
[2024-02-29 09:33] VITALS: BP 113/75
[2024-02-29 11:56] VITALS: PULSE 85
== END 2024-02-29 11:25 | disposition home or self-care (01) | DRG 190 ==
LOC: VM.ED 17:00 → VM.MS 19:18
PROVIDERS: ADMIT Internal Medicine; ATTEND Family Medicine
DX: J44.1 Chronic obstructive pulmonary disease with (acute) exacerbation (principal); J18.9 Pneumonia, unspecified organism; J96.11 Chronic respiratory failure with hypoxia; N18.9 Chronic kidney disease, unspecified; K21.9 Gastro-esophageal reflux disease without esophagitis; J44.0 Chronic obstructive pulmonary disease with (acute) lower respiratory infection; F41.9 Anxiety disorder, unspecified; I12.9 Hypertensive chronic kidney disease with stage 1 through stage 4 chronic kidney disease, or unspecified chronic kidney disease; Z91.09 Other allergy status, other than to drugs and biological substances; M19.90 Unspecified osteoarthritis, unspecified site; M81.0 Age-related osteoporosis without current pathological fracture; F32.A Depression, unspecified; G47.33 Obstructive sleep apnea (adult) (pediatric); D63.1 Anemia in chronic kidney disease; K21.00 Gastro-esophageal reflux disease with esophagitis, without bleeding; H91.93 Unspecified hearing loss, bilateral; N18.32 Chronic kidney disease, stage 3b; K59.01 Slow transit constipation; Z88.8 Allergy status to other drugs, medicaments and biological substances; Z88.1 Allergy status to other antibiotic agents; Z88.5 Allergy status to narcotic agent; Z79.899 Other long term (current) drug therapy; Z79.51 Long term (current) use of inhaled steroids; Z85.820 Personal history of malignant melanoma of skin; Z98.49 Cataract extraction status, unspecified eye; Z98.890 Other specified postprocedural states; Z99.81 Dependence on supplemental oxygen
CPT/HCPCS: 36415; 71045; 80053; 85025; 86140; 94640; 99284; 99285; A9270 ×2; 71046; 80048; 83880; 87070; 87077; 87186; 87205; 87486; 87581; 87633; 87798; 94760; 97116-GP; 97161-GP; 97530-GP; 99223; 99223-GT; J0456; J0696; J1644; J2919; J3490; J7050; J7512; J7620-GY; Q3014

== ENCOUNTER 2024-03-18 08:11 | Observation (INO) | payer OTHER ==
[2024-03-18] MEDS: LORazepam 2 MG/ML SDV IVPUSH ONE (08:49)
[2024-03-18] MEDS: Sodium Chloride 0.9% 10 ML Syringe FLUSH PRN (08:51)
[2024-03-18 09:00] LABS: BASOPHILS PERCENT AUTO 0.3 % (0.2-1.2); EOSINOPHILS ABSOLUTE AUTO 0.1 x10^3/uL (0.0-0.5); EOSINOPHILS PERCENT AUTO 1.3 % (0.0-4.0); HEMATOCRIT 32.7 % (40.0-52.0); HEMOGLOBIN 10.6 g/dL (14.0-18.0); IMMATURE GRAN ABSOLUTE AUTO 0.12 x10^3/uL (0.00-0.07); LYMPHOCYTES PERCENT AUTO 13.8 % (25.0-50.0); MEAN CORPUSCULAR HEMOGLOBIN 28.9 pg (26.0-32.0); MEAN CORPUSCULAR HGB CONC 32.4 g/dL (32.0-36.0); MEAN CORPUSCULAR VOLUME 89.1 fL (78.0-93.0); MONOCYTES ABSOLUTE AUTO 0.6 x10^3/uL (0.0-0.8); MONOCYTES PERCENT AUTO 8.6 % (2.0-11.0); NEUTROPHILS ABSOLUTE AUTO 5.3 x10^3/uL (1.8-7.7); NEUTROPHILS PERCENT AUTO 74.3 % (50.0-80.0); PLATELET COUNT,PLT 296 x10^3/uL (130-400); RED BLOOD CELL COUNT 3.67 x10^6/uL (4.5-6.0); WHITE BLOOD CELL COUNT,WBC 7.1 x10^3/uL (4.0-10.0)
[2024-03-18 09:22] LABS: A/G RATIO 0.81; BILIRUBIN TOTAL 0.3 mg/dL (0.2-1.0); CALCIUM 9.9 mg/dL (8.5-10.1); CREATININE 1.8 mg/dL (0.70-1.30); EST CRCL DRUG DOSING (CG) 26.09 mL/min; MAGNESIUM 2.1 mg/dL (1.8-2.4); POTASSIUM,K 4.3 mmol/L (3.5-5.1); PROTEIN TOTAL,TP 6.7 g/dL (6.4-8.2)
[2024-03-18 09:23] LABS: ANION GAP 11.3 mmol/L (5-15)
[2024-03-18 09:23] LABS: APPEARANCE,URINE CLEAR (CLEAR); BILIRUBIN,URINE NEGATIVE (NEGATIVE); COLOR,URINE YELLOW (YELLOW); GLUCOSE,URINE NEGATIVE (NEGATIVE); KETONES,URINE NEGATIVE (NEGATIVE); LEUKOCYTE ESTERASE,URINE TRACE (NEGATIVE); NITRITE,URINE NEGATIVE (NEGATIVE); OCCULT BLOOD,URINE NEGATIVE (NEGATIVE); PH,URINE 8.5 (5.0-8.0); PROTEIN,URINE 30 mg/dL (NEGATIVE); UROBILINOGEN,URINE 0.2 EU/dL (0.2)
[2024-03-18 09:31] LABS: AMORPHOUS SEDIMENT,URINE FEW; BACTERIA,URINE FEW /HPF (NOT SEEN); RBC,URINE NOT SEEN /HPF (NOT SEEN); SQUAMOUS EPITHELIAL CELLS,UR RARE /HPF (NOT SEEN); WBC,URINE 0-5 /HPF (NOT SEEN)
[2024-03-18] MEDS: Furosemide 40 MG/4 ML VIAL IV ONE (10:05)
[2024-03-18] MEDS ORDERED: Sodium Chloride 0.9% 10 ML Syringe FLUSH PRN (13:47)
[2024-03-18] MEDS: Heparin Sodium 5,000 Units/ML Vial SUBCUT SCH (14:52)
[2024-03-18] MEDS: Furosemide 40 MG/4 ML VIAL IV SCH (14:52)
[2024-03-18] MEDS: predniSONE 20 MG Tab PO ONE (17:56)
[2024-03-18] MEDS ORDERED: Non-Formulary Medication 1 Each (Formoterol Fumarate [Formoterol Fumarate] 20 MCG/2 ML Via IH SCH (21:00)
[2024-03-18] MEDS: Budesonide 0.5 MG/2 ML Neb Susp INH SCH (21:03)
[2024-03-18] MEDS: Arformoterol 15 MCG/2 ML Neb Soln INH SCH (21:07)
[2024-03-18] MEDS: Acetaminophen 325 MG Tab PO PRN (22:26)
[2024-03-18] MEDS: LORazepam 0.5 MG Tab PO PRN (22:27)
[2024-03-19] MEDS: Albuterol/Ipratropium 3.0-0.5 MG/3 ML Neb Soln NEB PRN (00:36)
[2024-03-19 07:26] LABS: BASOPHILS PERCENT AUTO 0.1 % (0.2-1.2); EOSINOPHILS PERCENT AUTO 0.1 % (0.0-4.0); HEMATOCRIT 33.9 % (40.0-52.0); HEMOGLOBIN 10.9 g/dL (14.0-18.0); IMMATURE GRAN ABSOLUTE AUTO 0.13 x10^3/uL (0.00-0.07); LYMPHOCYTES ABSOLUTE AUTO 0.9 x10^3/uL (1.0-4.8); LYMPHOCYTES PERCENT AUTO 11.1 % (25.0-50.0); MEAN CORPUSCULAR HEMOGLOBIN 28.5 pg (26.0-32.0); MEAN CORPUSCULAR HGB CONC 32.2 g/dL (32.0-36.0); MEAN CORPUSCULAR VOLUME 88.5 fL (78.0-93.0); MONOCYTES ABSOLUTE AUTO 0.5 x10^3/uL (0.0-0.8); MONOCYTES PERCENT AUTO 6.1 % (2.0-11.0); NEUTROPHILS ABSOLUTE AUTO 6.5 x10^3/uL (1.8-7.7); PLATELET COUNT,PLT 322 x10^3/uL (130-400); RED BLOOD CELL COUNT 3.83 x10^6/uL (4.5-6.0)
[2024-03-19 07:36] LABS: CALCIUM 9.3 mg/dL (8.5-10.1); CREATININE 2.1 mg/dL (0.70-1.30); EST CRCL DRUG DOSING (CG) 22.36 mL/min
[2024-03-19] MEDS: Citalopram 20 MG Tab PO SCH (09:43)
[2024-03-19] MEDS: amLODIPine 2.5 MG Tab PO SCH (09:43)
[2024-03-19] MEDS: predniSONE 20 MG Tab PO SCH (09:43)
[2024-03-19] MEDS: LORazepam 0.5 MG Tab PO PRN (11:44)
[2024-03-19] MEDS: predniSONE 20 MG Tab PO ONE (13:54)
[2024-03-19 15:42] VITALS: BP 139/70; PULSE 88
[2024-03-19] MEDS ORDERED: Ondansetron 4 MG Tab.DIS PO PRN (15:44)
[2024-03-19] MEDS: Take Home: Ondansetron 4 MG Tab.DIS, 5 Tab Pack PO ONE (16:08)
== END 2024-03-19 16:15 | disposition home or self-care (01) ==
LOC: VM.ED 08:11 → VM.MS 11:36
PROVIDERS: ADMIT Internal Medicine; ATTEND Internal Medicine
DX: R53.81 Other malaise (principal); F41.9 Anxiety disorder, unspecified; R06.02 Shortness of breath; I11.0 Hypertensive heart disease with heart failure; I50.9 Heart failure, unspecified; J44.1 Chronic obstructive pulmonary disease with (acute) exacerbation; R19.5 Other fecal abnormalities; Z79.899 Other long term (current) drug therapy; Z88.8 Allergy status to other drugs, medicaments and biological substances; Z88.5 Allergy status to narcotic agent; Z87.891 Personal history of nicotine dependence
CPT/HCPCS: 36415; 71045; 74176; 80048; 80053; 81001; 83735; 83880; 84484; 85025; 93005; 94640; 96374; 96375; 96376; 99285-25; A9270-GY; G0378; J1644; J1940; J2060; J3490; J7512; J7620-GY; Q0162